=== PATIENT | female | born 1935 | race African-American/Black ===

== ENCOUNTER 2021-01-17 10:31 | Inpatient (IN) | payer OTHER ==
[2021-01-17 10:56] VITALS: BMI 20.1
[2021-01-17] MEDS ORDERED: LABETALOL HCL 5 MG/1 ML (100MG/20 ML VIAL) IVPUSH ONE (11:32)
[2021-01-17] MEDS ORDERED: LABETALOL HCL 5 MG/1 ML (100MG/20 ML VIAL) ONE (11:57)
[2021-01-17] MEDS ORDERED: ACETAMINOPHEN 1000 MG/100 ML VIAL (NON FORMULARY) IVPB ONE (12:06)
[2021-01-17 12:17] LABS: BASO % 0.1 % (0-2.0); HEMATOCRIT 37.8 % (32.4-45.2); HEMOGLOBIN 12.4 GM/dL (10.7-15.3); LYMPH % 4.4 % (8-40); MCHC 32.9 g/dl (32.0-36.0); MEAN CELL VOLUME 88.4 fl (80-96); MEAN PLT VOLUME 10.6 fl (7.5-11.1); MONO % 4.9 % (3.8-10.2); NEUT % 90.6 % (42.8-82.8); PLATELET COUNT 222 K/MM3 (134-434); RBC 4.28 M/mm3 (3.60-5.2); RDW 14.8 % (11.6-15.6); WHITE BLOOD COUNT 8.6 K/mm3 (4.0-10.0)
[2021-01-17] MEDS ORDERED: ACETAMINOPHEN INJECTION 100 ML IVPB ONE (12:21)
[2021-01-17 12:24] LABS: INR 1.14 (0.83-1.09)
[2021-01-17 12:26] LABS: ACTIVATED PTT 31.3 SECONDS (25.2-36.5)
[2021-01-17 12:28] LABS: CHLORIDE 105 mmol/L (98-107); SODIUM 141 mmol/L (136-145)
[2021-01-17 12:30] LABS: ALBUMIN 3.6 g/dl (3.4-5.0); ANION GAP 11 MMOL/L (8-16); CALCIUM 9.8 mg/dL (8.5-10.1); CO2 25 mmol/L (21-32)
[2021-01-17 12:31] LABS: BLOOD UREA NITROGEN 23.7 mg/dL (7-18); GLUCOSE,RANDOM 209 mg/dL (74-106)
[2021-01-17 12:33] LABS: SGPT/ALT 9 U/L (13-61); TRIGLYCERIDES 85 mg/dL (0-150)
[2021-01-17 12:34] LABS: CHOLESTEROL 254 mg/dL (50-200); CREATININE 1.6 mg/dL (0.55-1.3); SGOT/AST 13 U/L (15-37)
[2021-01-17 12:35] LABS: BILIRUBIN,TOTAL 0.6 mg/dL (0.2-1); LDL CHOLESTEROL (ONLY SJRH) 137 mg/dL (5-100); TOT PROT 7.3 g/dl (6.4-8.2)
[2021-01-17 12:36] LABS: ALK PHOS 130 U/L (45-117); HDL CHOLESTEROL 87 mg/dL (40-60)
[2021-01-17 12:43] LABS: VENOUS BASE EXCESS -0.9 mmol/L (-2-2); VENOUS O2 SATURATION 46.6 % (70-80); VENOUS PCO2 48.3 mmHg (38-52); VENOUS PH 7.34 (7.310-7.410)
[2021-01-17] MEDS ORDERED: hydrALAZINE HCL 20 MG/ML VIAL IVPUSH ONE ×2 (12:56→16:03)
[2021-01-17] MEDS ORDERED: VANCOMYCIN 1 GM in D5W (PRE-DOCKED) 1,000 MG/250 ML IVPB ONE (13:00)
[2021-01-17] MEDS ORDERED: PIPERACILLIN/TAZOB 3.375 GM 3.375 GM in DEXTROSE 5%-WATER - 50 ML IVPB ONE (13:00)
[2021-01-17] MEDS ORDERED: hydrALAZINE HCL 20 MG/ML VIAL ONE ×2 (13:07→16:16)
[2021-01-17] MEDS ORDERED: VANCOMYCIN 1 GRAM (PRE-DOCKED) 1,000 MG/250 ML BAG IVPB ONE (13:07)
[2021-01-17] MEDS ORDERED: PIPERACILLIN/TAZOB 3.375 GM 3.375 GM/50 ML BAG IVPB ONE (13:07)
[2021-01-17 13:12] LABS: EPI CELLS 28 /uL (0-25.1); HYALINE CASTS 1 /uL (0-3.1); URINE APPEARANCE CLEAR; URINE BACTERIA 145 /uL (0-1359); URINE BILIRUBIN NEGATIVE (NEGATIVE); URINE COLOR YELLOW; URINE GLUCOSE (UA) 2+ (NEGATIVE); URINE KETONE 1+ (NEGATIVE); URINE LEUK ESTERASE NEGATIVE (NEGATIVE); URINE NITRITE NEGATIVE (NEGATIVE); URINE PROTEIN 3+ (NEGATIVE); URINE RBC 10 /uL (0-23.9); URINE UROBILINOGEN 0.2 mg/dL (0.2-1.0); URINE WBC 8 /uL (0-25.8)
[2021-01-17] MEDS ORDERED: PIPERACILLIN/TAZOB 3.375 GM 3.375 GM in DEXTROSE 5%-WATER - 50 ML IVPB SCH (21:45)
[2021-01-17] MEDS ORDERED: PIPERACILLIN/TAZOBACTAM 3.375 GM VIAL IVPB ONE (22:20)
[2021-01-17] MEDS ORDERED: DEXTROSE 5%-WATER - 50 ML IVPB ONE (22:21)
[2021-01-17] MEDS: PIPERACILLIN/TAZOB 3.375 GM 3.375 GM in DEXTROSE 5%-WATER - 50 ML IVPB SCH (22:36)
[2021-01-17] MEDS: LACTATED RINGERS SOLUTION 1,000 ML IV SCH (22:37)
[2021-01-17] MEDS: INSULIN SLIDING SCALE (NOVOLOG) 1 VIAL SQ SCH (22:45)
[2021-01-18] MEDS ORDERED: LISINOPRIL 20 MG TABLET PO ONE (02:10)
[2021-01-18] MEDS ORDERED: PIPERACILLIN/TAZOBACTAM 3.375 GM VIAL IVPB ONE ×2 (05:35→13:12)
[2021-01-18] MEDS ORDERED: DEXTROSE 5%-WATER - 50 ML IVPB ONE ×2 (05:36→13:12)
[2021-01-18] MEDS: PIPERACILLIN/TAZOB 3.375 GM 3.375 GM in DEXTROSE 5%-WATER - 50 ML IVPB SCH ×2 (06:00→14:57)
[2021-01-18] MEDS: GABAPENTIN 300 MG CAPSULE PO SCH ×3 (06:01→22:42)
[2021-01-18 07:30] LABS: BASO % 0.3 % (0-2.0); EOS % 0.2 % (0-4.5); HEMATOCRIT 33.5 % (32.4-45.2); HEMOGLOBIN 11.3 GM/dL (10.7-15.3); LYMPH % 11.2 % (8-40); MCH 29.3 pg (25.7-33.7); MCHC 33.6 g/dl (32.0-36.0); MEAN CELL VOLUME 87.3 fl (80-96); MEAN PLT VOLUME 10.7 fl (7.5-11.1); MONO % 8.4 % (3.8-10.2); NEUT % 79.9 % (42.8-82.8); PLATELET COUNT 210 K/MM3 (134-434); RBC 3.84 M/mm3 (3.60-5.2); RDW 14.9 % (11.6-15.6)
[2021-01-18 07:42] LABS: CHLORIDE 106 mmol/L (98-107); SODIUM 141 mmol/L (136-145)
[2021-01-18 07:45] LABS: ALBUMIN 2.9 g/dl (3.4-5.0); ANION GAP 11 MMOL/L (8-16); BLOOD UREA NITROGEN 29.9 mg/dL (7-18); CO2 24 mmol/L (21-32); GLUCOSE,RANDOM 169 mg/dL (74-106); MAGNESIUM 2.3 mg/dL (1.8-2.4)
[2021-01-18 07:47] LABS: URIC ACID 4.6 mg/dL (2.6-7.2)
[2021-01-18 07:48] LABS: PHOSPHOROUS 3.4 mg/dL (2.5-4.9); SGOT/AST 10 U/L (15-37); SGPT/ALT < 6 U/L (13-61)
[2021-01-18 07:49] LABS: CREATININE 1.7 mg/dL (0.55-1.3)
[2021-01-18 07:50] LABS: BILIRUBIN,TOTAL 0.6 mg/dL (0.2-1)
[2021-01-18 07:51] LABS: ALK PHOS 103 U/L (45-117)
[2021-01-18 09:27] LABS: ERYTHROCYTE SEDIMENTATION RATE 51 mm/hr (0-30)
[2021-01-18] MEDS ORDERED: PNEUMOC 13-VAL CONJ-DIP CRM/PF 0.5 ML DISP.SYRIN IM ONE (10:00)
[2021-01-18] MEDS: ENOXAPARIN NA (PORCINE) 30 MG/0.3 ML DISP.SYRIN SQ SCH (10:50)
[2021-01-18] MEDS: ALLOPURINOL 100 MG TABLET (FP) PO SCH (10:50)
[2021-01-18] MEDS: LISINOPRIL 20 MG TABLET PO SCH (10:50)
[2021-01-18] MEDS: INSULIN SLIDING SCALE (NOVOLOG) 1 VIAL SQ SCH ×3 (12:11→22:42)
[2021-01-18] MEDS ORDERED: VANCOMYCIN 1 GRAM (PRE-DOCKED) 1,000 MG/250 ML BAG IVPB ONE (13:00)
[2021-01-18] MEDS ORDERED: VANCOMYCIN 1 GM in D5W (PRE-DOCKED) 1,000 MG/250 ML IVPB SCH (13:00)
[2021-01-18] MEDS ORDERED: CEFTRIAXONE 2 GM in DEXTROSE 5%-WATER 2 GM/50 ML BAG IVPB SCH (15:00)
[2021-01-18] MEDS: predniSONE 10 MG TABLET (UD) PO SCH (22:42)
[2021-01-18] MEDS: LACTATED RINGERS SOLUTION 1,000 ML IV SCH (22:42)
[2021-01-18] MEDS: ACETAMINOPHEN 325 MG TABLET (FP) PO PRN (23:18)
[2021-01-19] MEDS: GABAPENTIN 300 MG CAPSULE PO SCH ×3 (06:50→22:05)
[2021-01-19] MEDS: INSULIN SLIDING SCALE (NOVOLOG) 1 VIAL SQ SCH ×4 (06:50→22:04)
[2021-01-19 09:30] LABS: BASO % 0.3 % (0-2.0); HEMATOCRIT 32.8 % (32.4-45.2); LYMPH % 7.9 % (8-40); MCHC 33.4 g/dl (32.0-36.0); MEAN CELL VOLUME 86.9 fl (80-96); MEAN PLT VOLUME 10.6 fl (7.5-11.1); MONO % 9.2 % (3.8-10.2); NEUT % 82.6 % (42.8-82.8); PLATELET COUNT 199 K/MM3 (134-434); RBC 3.77 M/mm3 (3.60-5.2); RDW 14.8 % (11.6-15.6); WHITE BLOOD COUNT 7.8 K/mm3 (4.0-10.0)
[2021-01-19] MEDS: ISOSORBIDE DINITRATE 5 MG TABLET PO SCH (09:39)
[2021-01-19] MEDS: LISINOPRIL 20 MG TABLET PO SCH (09:39)
[2021-01-19] MEDS: ALLOPURINOL 100 MG TABLET (FP) PO SCH (09:39)
[2021-01-19] MEDS: predniSONE 10 MG TABLET (UD) PO SCH (09:39)
[2021-01-19] MEDS: ENOXAPARIN NA (PORCINE) 30 MG/0.3 ML DISP.SYRIN SQ SCH (09:39)
[2021-01-19] MEDS ORDERED: DEXTROSE 5%-WATER 100 ML IVPB ONE (09:47)
[2021-01-19] MEDS: CEFTRIAXONE 2 GM in DEXTROSE 5%-WATER 2 GM/100 ML BAG IVPB SCH (09:49)
[2021-01-19 09:54] LABS: CHLORIDE 106 mmol/L (98-107); SODIUM 140 mmol/L (136-145)
[2021-01-19 10:10] LABS: ALBUMIN 2.5 g/dl (3.4-5.0); BLOOD UREA NITROGEN 39.4 mg/dL (7-18)
[2021-01-19 10:11] LABS: ANION GAP 8 MMOL/L (8-16); CALCIUM 8.5 mg/dL (8.5-10.1); CO2 26 mmol/L (21-32); GLUCOSE,RANDOM 230 mg/dL (74-106); MAGNESIUM 2.4 mg/dL (1.8-2.4)
[2021-01-19 10:14] LABS: CREATININE 1.9 mg/dL (0.55-1.3); SGOT/AST 8 U/L (15-37); SGPT/ALT 6 U/L (13-61)
[2021-01-19 10:16] LABS: BILIRUBIN,TOTAL 0.2 mg/dL (0.2-1); TOT PROT 5.7 g/dl (6.4-8.2)
[2021-01-19 10:18] LABS: ALK PHOS 99 U/L (45-117)
[2021-01-19] MEDS ORDERED: INSULIN (NOVOLOG) ASPART 100 UNITS/ML 10ML VIAL ONE (10:46)
[2021-01-19] MEDS ORDERED: SODIUM CHLORIDE 1,000 ML IV SCH (13:45)
[2021-01-19] MEDS ORDERED: HEPARIN NA (PORCINE) 5,000 UNITS/ML 1ML VIAL SQ SCH (22:00)
[2021-01-19] MEDS ORDERED: INSULIN (LEVEMIR) 100 UNITS/ML UNITS SQ SCH (22:00)
[2021-01-19] MEDS: ACETAMINOPHEN 325 MG TABLET (FP) PO PRN (22:05)
[2021-01-20] MEDS: INSULIN SLIDING SCALE (NOVOLOG) 1 VIAL SQ SCH ×4 (06:20→21:43)
[2021-01-20] MEDS: GABAPENTIN 300 MG CAPSULE PO SCH ×3 (06:20→21:42)
[2021-01-20] MEDS ORDERED: INSULIN (LEVEMIR) 100 UNITS/ML UNITS SQ SCH (08:08)
[2021-01-20] MEDS ORDERED: DEXTROSE 5%-WATER 100 ML IVPB ONE (08:46)
[2021-01-20] MEDS: ISOSORBIDE DINITRATE 5 MG TABLET PO SCH (09:16)
[2021-01-20] MEDS: predniSONE 10 MG TABLET (UD) PO SCH (09:16)
[2021-01-20] MEDS: CEFTRIAXONE 2 GM in DEXTROSE 5%-WATER 2 GM/100 ML BAG IVPB SCH (09:16)
[2021-01-20] MEDS: ALLOPURINOL 100 MG TABLET (FP) PO SCH (09:16)
[2021-01-20] MEDS: HEPARIN NA (PORCINE) 5,000 UNITS/ML 1ML VIAL SQ SCH ×3 (09:16→21:41)
[2021-01-20] MEDS: LISINOPRIL 20 MG TABLET PO SCH (09:16)
[2021-01-20 11:43] LABS: HEMATOCRIT 30.6 % (32.4-45.2); MCHC 32.8 g/dl (32.0-36.0); MEAN CELL VOLUME 88.3 fl (80-96); MEAN PLT VOLUME 11.2 fl (7.5-11.1); PLATELET COUNT 204 K/MM3 (134-434); RBC 3.47 M/mm3 (3.60-5.2)
[2021-01-20 11:44] LABS: WHITE BLOOD COUNT 12.2 K/mm3 (4.0-10.0)
[2021-01-20 11:48] LABS: CALCIUM 8.3 mg/dL (8.5-10.1)
[2021-01-20 11:49] LABS: ALBUMIN 2.5 g/dl (3.4-5.0); BLOOD UREA NITROGEN 41.6 mg/dL (7-18); MAGNESIUM 2.4 mg/dL (1.8-2.4)
[2021-01-20 11:52] LABS: CREATININE 1.8 mg/dL (0.55-1.3)
[2021-01-20 11:54] LABS: BILIRUBIN,TOTAL 0.2 mg/dL (0.2-1); TOT PROT 5.5 g/dl (6.4-8.2)
[2021-01-20 12:57] LABS: ANISOCYTOSIS 0; MACROCYTOSIS 0; OVALOCYTE 1+; PLATELET ESTIMATE NORMAL
[2021-01-20] MEDS ORDERED: hydrALAZINE HCL 20 MG/ML VIAL IVPUSH ONE (21:45)
[2021-01-21] MEDS: INSULIN SLIDING SCALE (NOVOLOG) 1 VIAL SQ SCH ×3 (06:04→16:54)
[2021-01-21] MEDS: HEPARIN NA (PORCINE) 5,000 UNITS/ML 1ML VIAL SQ SCH ×2 (06:04→14:28)
[2021-01-21] MEDS: GABAPENTIN 300 MG CAPSULE PO SCH ×2 (06:29→14:28)
[2021-01-21 08:13] LABS: BASO % 0.4 % (0-2.0); EOS % 0.6 % (0-4.5); HEMATOCRIT 30.2 % (32.4-45.2); HEMOGLOBIN 10.1 GM/dL (10.7-15.3); LYMPH % 17.1 % (8-40); MCH 29.2 pg (25.7-33.7); MCHC 33.5 g/dl (32.0-36.0); MEAN CELL VOLUME 87.4 fl (80-96); MEAN PLT VOLUME 10.7 fl (7.5-11.1); MONO % 11.4 % (3.8-10.2); NEUT % 70.5 % (42.8-82.8); PLATELET COUNT 219 K/MM3 (134-434); RBC 3.45 M/mm3 (3.60-5.2); RDW 14.7 % (11.6-15.6); WHITE BLOOD COUNT 5.9 K/mm3 (4.0-10.0)
[2021-01-21 08:32] LABS: CALCIUM 8.3 mg/dL (8.5-10.1)
[2021-01-21 08:33] LABS: ALBUMIN 2.4 g/dl (3.4-5.0); BLOOD UREA NITROGEN 32.7 mg/dL (7-18); MAGNESIUM 2.4 mg/dL (1.8-2.4)
[2021-01-21 08:36] LABS: CREATININE 1.5 mg/dL (0.55-1.3)
[2021-01-21 08:37] LABS: BILIRUBIN,TOTAL 0.3 mg/dL (0.2-1); TOT PROT 5.2 g/dl (6.4-8.2)
[2021-01-21] MEDS ORDERED: POTASSIUM CHLORIDE TABS 20 MEQ TABLET.ER (FP) PO ONE (08:55)
[2021-01-21] MEDS ORDERED: DEXTROSE 5%-WATER 100 ML IVPB ONE (09:11)
[2021-01-21] MEDS: ISOSORBIDE DINITRATE 5 MG TABLET PO SCH (09:32)
[2021-01-21] MEDS: ALLOPURINOL 100 MG TABLET (FP) PO SCH (09:32)
[2021-01-21] MEDS: LISINOPRIL 20 MG TABLET PO SCH (09:32)
[2021-01-21] MEDS: CEFTRIAXONE 2 GM in DEXTROSE 5%-WATER 2 GM/100 ML BAG IVPB SCH (09:33)
[2021-01-21] MEDS ORDERED: predniSONE 5 MG TABLET (UD) PO SCH (10:00)
[2021-01-21] MEDS: ACETAMINOPHEN 325 MG TABLET (FP) PO PRN (16:52)
[2021-01-21 19:39] VITALS: BP 138/88; PULSE 86; TEMP 99
== END 2021-01-21 21:34 | DRG 565 ==
LOC: JER 10:31 → JERBED 14:52 → J4W 20:57
PROVIDERS: ADMIT Internal Medicine; ATTEND Nurse Practitioner Acute Care
DX: M25.431 Effusion, right wrist (principal); L03.113 Cellulitis of right upper limb; I16.1 Hypertensive emergency; I67.4 Hypertensive encephalopathy; E11.9 Type 2 diabetes mellitus without complications; N18.9 Chronic kidney disease, unspecified; M10.9 Gout, unspecified; E78.5 Hyperlipidemia, unspecified
CPT/HCPCS: 36415; 70450-TC; 71045-TC-FY; 73090-TC-RT-FY; 73110-TC-RT-FY; 73130-TC-RT-FY; 76775-TC; 76882-TC-RT-FY; 80053; 80061; 81003; 82550; 82803; 82962; 83036; 83605; 83721; 83735; 84100; 84443; 84484; 84550; 85025; 85610; 85651; 85730; 86140; 86618; 86769; 86850; 86900; 86901; 87040; 87086; 93005; 93010; 93971; 97116-GP; 97162-GP; 99291; C9803; J0131; J1644; U0003; U0005

== ENCOUNTER 2021-02-05 18:22 | Inpatient (IN) | payer OTHER ==
[2021-02-05] MEDS ORDERED: LACTATED RINGERS SOLUTION 1000 ML INFUS.BAG IV ONE ×2 (19:16→19:32)
[2021-02-05] MEDS ORDERED: VANCOMYCIN 250 MG/5 ML ORAL SOLUTION PO ONE (19:43)
[2021-02-05 19:47] LABS: VENOUS BASE EXCESS -14.2 mmol/L (-2-2); VENOUS O2 SATURATION 79.1 % (70-80); VENOUS PCO2 43.8 mmHg (38-52)
[2021-02-05 19:48] LABS: VENOUS PH 7.135 (7.310-7.410)
[2021-02-05] MEDS ORDERED: PIPERACILLIN/TAZOB 2.25 GM 2.25 GM in DEXTROSE 5%-WATER - 50 ML IVPB ONE (19:58)
[2021-02-05 20:01] LABS: HEMATOCRIT 41.3 % (32.4-45.2); HEMOGLOBIN 11.4 GM/dL (10.7-15.3); LYMPH % 2.2 % (8-40); MCH 27.7 pg (25.7-33.7); MCHC 27.7 g/dl (32.0-36.0); MEAN CELL VOLUME 99.9 fl (80-96); MEAN PLT VOLUME 12.6 fl (7.5-11.1); NEUT % 94.8 % (42.8-82.8); PLATELET COUNT 346 K/MM3 (134-434); RBC 4.13 M/mm3 (3.60-5.2); RDW 17.5 % (11.6-15.6); WHITE BLOOD COUNT 23.6 K/mm3 (4.0-10.0)
[2021-02-05 20:03] LABS: INR 1.14 (0.83-1.09); PROTHROMBIN TIME (PATIENT) 13.7 SEC (9.7-13.0)
[2021-02-05 20:05] LABS: ACTIVATED PTT 27.1 SECONDS (25.2-36.5)
[2021-02-05 20:08] LABS: CHLORIDE 109 mmol/L (98-107); SODIUM 145 mmol/L (136-145)
[2021-02-05 20:11] LABS: MAGNESIUM 3.2 mg/dL (1.8-2.4)
[2021-02-05 20:13] LABS: ALBUMIN 2.2 g/dl (3.4-5.0); ANION GAP 21 MMOL/L (8-16); BLOOD UREA NITROGEN 77.1 mg/dL (7-18); CALCIUM 8.8 mg/dL (8.5-10.1); CO2 15 mmol/L (21-32)
[2021-02-05 20:15] LABS: PHOSPHOROUS 5.1 mg/dL (2.5-4.9)
[2021-02-05 20:16] LABS: SGPT/ALT < 6 U/L (13-61)
[2021-02-05 20:17] LABS: BILIRUBIN,TOTAL 0.5 mg/dL (0.2-1); CREATININE 3.5 mg/dL (0.55-1.3); SGOT/AST 5 U/L (15-37)
[2021-02-05 20:18] LABS: TOT PROT 5.9 g/dl (6.4-8.2)
[2021-02-05] MEDS ORDERED: INSULIN REGULAR HUMAN 100 UNITS/ML *VIAL IVPUSH ONE (20:18)
[2021-02-05 20:19] LABS: ALK PHOS 154 U/L (45-117)
[2021-02-05 20:24] LABS: GLUCOSE,RANDOM 1245 mg/dL (74-106)
[2021-02-05] MEDS ORDERED: PIPERACILLIN/TAZOB 2.25 GM 2.25 GM/50 ML BAG IVPB ONE (20:25)
[2021-02-05] MEDS ORDERED: VANCOMYCIN 500 MG VIAL (RESTRICTED TO ID ONLY) ONE (20:25)
[2021-02-05 20:28] LABS: ANISOCYTOSIS 2+; MACROCYTOSIS 0; PLATELET ESTIMATE NORMAL; TEAR DROP CELLS 1+
[2021-02-05] MEDS ORDERED: INSULIN REGULAR 100 UNITS in SODIUM CHLORIDE 99 ML IVPB SCH (20:30)
[2021-02-05] MEDS ORDERED: KCL 10 MEQ IVPB 10 MEQ/100 ML INFUS.BAG IVPB ONE ×2 (20:43→21:54)
[2021-02-05] MEDS ORDERED: INSULIN REGULAR HUMAN 100 UNITS/ML *VIAL ONE (20:44)
[2021-02-05] MEDS ORDERED: ACETAMINOPHEN 1000 MG/100 ML VIAL (NON FORMULARY) IVPB ONE (20:51)
[2021-02-05] MEDS ORDERED: ACETAMINOPHEN INJECTION 100 ML IVPB ONE (20:53)
[2021-02-05] MEDS: KCL 10 MEQ IVPB 10 MEQ/100 ML INFUS.BAG IVPB SCH ×2 (21:04→22:57)
[2021-02-05 22:59] LABS: CHLORIDE 111 mmol/L (98-107); SODIUM 145 mmol/L (136-145)
[2021-02-05 23:02] LABS: CALCIUM 8.4 mg/dL (8.5-10.1)
[2021-02-05 23:03] LABS: ANION GAP 17 MMOL/L (8-16); BLOOD UREA NITROGEN 74.8 mg/dL (7-18); CO2 17 mmol/L (21-32)
[2021-02-05 23:06] LABS: CREATININE 3.5 mg/dL (0.55-1.3); SGOT/AST 10 U/L (15-37); SGPT/ALT < 6 U/L (13-61)
[2021-02-05 23:07] LABS: BILIRUBIN,TOTAL 0.6 mg/dL (0.2-1); TOT PROT 5.4 g/dl (6.4-8.2)
[2021-02-05 23:09] LABS: ALK PHOS 141 U/L (45-117)
[2021-02-05 23:09] LABS: EPI CELLS 19 /uL (0-25.1); HYALINE CASTS 2 /uL (0-3.1); URINE APPEARANCE CLEAR; URINE BACTERIA 5 /uL (0-1359); URINE BILIRUBIN NEGATIVE (NEGATIVE); URINE COLOR YELLOW; URINE GLUCOSE (UA) 3+ (NEGATIVE); URINE KETONE TRACE (NEGATIVE); URINE LEUK ESTERASE NEGATIVE (NEGATIVE); URINE NITRITE NEGATIVE (NEGATIVE); URINE PROTEIN 1+ (NEGATIVE); URINE RBC 39 /uL (0-23.9); URINE UROBILINOGEN 0.2 mg/dL (0.2-1.0); URINE WBC 12 /uL (0-25.8)
[2021-02-05 23:15] LABS: GLUCOSE,RANDOM 1193 mg/dL (74-106)
[2021-02-06] MEDS ORDERED: LACTATED RINGERS SOLUTION 1000 ML INFUS.BAG IV ONE (00:09)
[2021-02-06] MEDS ORDERED: PIPERACILLIN/TAZOBACTAM 2.25 GM VIAL IVPB ONE ×2 (00:47→09:19)
[2021-02-06] MEDS: KCL 10 MEQ IVPB 10 MEQ/100 ML INFUS.BAG IVPB SCH (00:48)
[2021-02-06] MEDS ORDERED: DEXTROSE 5%-WATER - 50 ML IVPB ONE ×2 (00:48→09:19)
[2021-02-06] MEDS: PIPERACILLIN/TAZOB 2.25 GM 2.25 GM in DEXTROSE 5%-WATER - 50 ML IVPB SCH ×2 (01:01→09:26)
[2021-02-06] MEDS ORDERED: PIPERACILLIN/TAZOB 2.25 GM 2.25 GM in DEXTROSE 5%-WATER - 50 ML IVPB SCH (02:00)
[2021-02-06 02:45] LABS: CHLORIDE 115 mmol/L (98-107); SODIUM 147 mmol/L (136-145)
[2021-02-06 02:48] LABS: ALBUMIN 1.8 g/dl (3.4-5.0); ANION GAP 15 MMOL/L (8-16); BLOOD UREA NITROGEN 71.6 mg/dL (7-18); CO2 17 mmol/L (21-32)
[2021-02-06 02:50] LABS: SGPT/ALT < 6 U/L (13-61)
[2021-02-06 02:51] LABS: CREATININE 3.5 mg/dL (0.55-1.3); SGOT/AST 7 U/L (15-37)
[2021-02-06 02:52] LABS: BILIRUBIN,TOTAL 0.2 mg/dL (0.2-1); TOT PROT 4.8 g/dl (6.4-8.2)
[2021-02-06 02:54] LABS: ALK PHOS 125 U/L (45-117)
[2021-02-06 02:56] LABS: GLUCOSE,RANDOM 902 mg/dL (74-106)
[2021-02-06] MEDS: SODIUM CHLORIDE 0.45%/POT 20 MEQ/1,000 ML INFUS.BAG IV SCH ×2 (04:00→12:14)
[2021-02-06] MEDS ORDERED: VANCOMYCIN 250 MG/5 ML ORAL SOLUTION PO SCH (06:00)
[2021-02-06 07:32] LABS: VENOUS BASE EXCESS -9.5 mmol/L (-2-2); VENOUS O2 SATURATION 50.8 % (70-80); VENOUS PCO2 46.9 mmHg (38-52); VENOUS PH 7.206 (7.310-7.410)
[2021-02-06 07:45] LABS: BASO % 0.4 % (0-2.0); EOS % 3.5 % (0-4.5); HEMATOCRIT 25.5 % (32.4-45.2); HEMOGLOBIN 8.4 GM/dL (10.7-15.3); LYMPH % 17.5 % (8-40); MCH 26.2 pg (25.7-33.7); MCHC 32.7 g/dl (32.0-36.0); MEAN CELL VOLUME 79.9 fl (80-96); MEAN PLT VOLUME 8.5 fl (7.5-11.1); MONO % 8.5 % (3.8-10.2); NEUT % 70.1 % (42.8-82.8); PLATELET COUNT 577 K/MM3 (134-434); RDW 21.7 % (11.6-15.6)
[2021-02-06 09:13] LABS: ANISOCYTOSIS 2+; MACROCYTOSIS 0; PLATELET ESTIMATE INCREASED
[2021-02-06] MEDS ORDERED: ELECTROLYTE-148 SOLN 1,000 ML IV SCH (10:15)
[2021-02-06 11:32] LABS: CHLORIDE 117 mmol/L (98-107); SODIUM 151 mmol/L (136-145)
[2021-02-06 11:34] LABS: ALBUMIN 1.8 g/dl (3.4-5.0); ANION GAP 13 MMOL/L (8-16); BLOOD UREA NITROGEN 74.2 mg/dL (7-18); CALCIUM 8.4 mg/dL (8.5-10.1); CO2 22 mmol/L (21-32)
[2021-02-06 11:35] LABS: GLUCOSE,RANDOM 336 mg/dL (74-106); MAGNESIUM 2.5 mg/dL (1.8-2.4)
[2021-02-06 11:37] LABS: SGOT/AST 9 U/L (15-37)
[2021-02-06 11:38] LABS: CREATININE 3.2 mg/dL (0.55-1.3)
[2021-02-06 11:39] LABS: BILIRUBIN,TOTAL 0.2 mg/dL (0.2-1); TOT PROT 4.8 g/dl (6.4-8.2)
[2021-02-06 11:40] LABS: ALK PHOS 122 U/L (45-117); PHOSPHOROUS 1.4 mg/dL (2.5-4.9)
[2021-02-06 11:44] LABS: SGPT/ALT < 6 U/L (13-61)
[2021-02-06] MEDS: HEPARIN NA (PORCINE) 5,000 UNITS/ML 1ML VIAL SQ SCH ×2 (12:11→23:50)
[2021-02-06] MEDS ORDERED: POTASSIUM PHOSPHATE 30 MM in SODIUM CHLORIDE 250 ML IVPB ONE (12:30)
[2021-02-06] MEDS ORDERED: PT OWN MED DRAWER 7, Y5N ONE ×4 (12:31→18:20)
[2021-02-06] MEDS ORDERED: DEXTROSE 5%-0.45% SALINE 1,000 ML IV SCH (14:45)
[2021-02-06] MEDS: VANCOMYCIN 250 MG/5 ML ORAL SOLUTION NGT SCH ×3 (14:58→23:50)
[2021-02-06] MEDS: MUPIROCIN 2% TOPICAL OINTMENT FOR DECOLONIZATION NS SCH ×2 (15:00→23:49)
[2021-02-06] MEDS: INSULIN SLIDING SCALE (NOVOLOG) 1 VIAL SQ SCH ×3 (15:30→23:50)
[2021-02-06 15:52] LABS: LACTIC ACID 2.4 mmol/L (0.4-2.0)
[2021-02-06] MEDS: CHLORHEXIDINE GLUCONATE 4% CLEANSER FOR DECOLONIZATION TP SCH (23:50)
[2021-02-07] MEDS: INSULIN SLIDING SCALE (NOVOLOG) 1 VIAL SQ SCH ×6 (02:00→21:36)
[2021-02-07] MEDS: VANCOMYCIN 250 MG/5 ML ORAL SOLUTION NGT SCH ×3 (06:42→17:38)
[2021-02-07 08:02] LABS: ALBUMIN 1.8 g/dl (3.4-5.0); BLOOD UREA NITROGEN 67.2 mg/dL (7-18); MAGNESIUM 2.3 mg/dL (1.8-2.4)
[2021-02-07 08:05] LABS: CREATININE 2.9 mg/dL (0.55-1.3); PHOSPHOROUS 3.3 mg/dL (2.5-4.9)
[2021-02-07 08:06] LABS: BILIRUBIN,TOTAL 0.3 mg/dL (0.2-1); TOT PROT 4.6 g/dl (6.4-8.2)
[2021-02-07] MEDS ORDERED: DEXTROSE 5%-0.45% SALINE 1,000 ML IV SCH (08:33)
[2021-02-07] MEDS: HEPARIN NA (PORCINE) 5,000 UNITS/ML 1ML VIAL SQ SCH ×2 (09:11→21:29)
[2021-02-07] MEDS: INSULIN (LEVEMIR) 100 UNITS/ML UNITS SQ SCH ×2 (09:11→21:36)
[2021-02-07] MEDS: MUPIROCIN 2% TOPICAL OINTMENT FOR DECOLONIZATION NS SCH ×2 (09:39→21:29)
[2021-02-07] MEDS ORDERED: PT OWN MED DRAWER 7, Y5N ONE ×3 (11:46→17:05)
[2021-02-07] MEDS ORDERED: ALBUTEROL SO4 0.5 % INH SOLN 2.5 MG/0.5 ML VIAL.NEB. NEB PRN (13:46)
[2021-02-07 14:04] LABS: BASO % 0.2 % (0-2.0); EOS % 0.6 % (0-4.5); HEMATOCRIT 32.5 % (32.4-45.2); HEMOGLOBIN 10.3 GM/dL (10.7-15.3); LYMPH % 3.3 % (8-40); MCH 27.6 pg (25.7-33.7); MCHC 31.8 g/dl (32.0-36.0); MEAN CELL VOLUME 86.8 fl (80-96); MEAN PLT VOLUME 11.5 fl (7.5-11.1); MONO % 3.4 % (3.8-10.2); NEUT % 92.5 % (42.8-82.8); PLATELET COUNT 254 K/MM3 (134-434); RBC 3.74 M/mm3 (3.60-5.2); RDW 15.6 % (11.6-15.6); WHITE BLOOD COUNT 22.7 K/mm3 (4.0-10.0)
[2021-02-07 15:09] LABS: ANISOCYTOSIS 1+; MACROCYTOSIS 0; PLATELET ESTIMATE NORMAL
[2021-02-07] MEDS ORDERED: FUROSEMIDE 40 MG/4 ML INJECTABLE VIAL IVPUSH ONE (17:21)
[2021-02-07] MEDS: AMINO ACIDS 4.25%/D5W 1,000 ML IV SCH (21:29)
[2021-02-07] MEDS: SODIUM CHLORIDE 0.45% 1,000 ML IV SCH (21:29)
[2021-02-07] MEDS: CHLORHEXIDINE GLUCONATE 4% CLEANSER FOR DECOLONIZATION TP SCH (21:29)
[2021-02-07] MEDS: MULTIVIT INJ. ADULT COMBO WITH VIT K 1 COMBO 10 ML VIAL IV SCH (21:36)
[2021-02-08] MEDS: INSULIN SLIDING SCALE (NOVOLOG) 1 VIAL SQ SCH ×6 (01:22→21:26)
[2021-02-08] MEDS: VANCOMYCIN 250 MG/5 ML ORAL SOLUTION NGT SCH ×5 (06:17→18:46)
[2021-02-08 08:00] LABS: ALBUMIN 1.6 g/dl (3.4-5.0); BLOOD UREA NITROGEN 62.5 mg/dL (7-18)
[2021-02-08 08:01] LABS: CALCIUM 8.1 mg/dL (8.5-10.1)
[2021-02-08 08:02] LABS: MAGNESIUM 2.2 mg/dL (1.8-2.4)
[2021-02-08 08:04] LABS: PHOSPHOROUS 3.2 mg/dL (2.5-4.9)
[2021-02-08 08:05] LABS: BILIRUBIN,TOTAL 0.8 mg/dL (0.2-1); TOT PROT 4.3 g/dl (6.4-8.2)
[2021-02-08 08:06] LABS: CREATININE 2.5 mg/dL (0.55-1.3)
[2021-02-08] MEDS ORDERED: PT OWN MED DRAWER 7, Y5N ONE (09:51)
[2021-02-08] MEDS: HEPARIN NA (PORCINE) 5,000 UNITS/ML 1ML VIAL SQ SCH ×2 (09:55→21:19)
[2021-02-08] MEDS: INSULIN (LEVEMIR) 100 UNITS/ML UNITS SQ SCH ×2 (10:19→21:27)
[2021-02-08] MEDS: MUPIROCIN 2% TOPICAL OINTMENT FOR DECOLONIZATION NS SCH ×2 (10:20→21:19)
[2021-02-08] MEDS ORDERED: INSULIN (NOVOLOG) ASPART 100 UNITS/ML 10ML VIAL ONE (11:30)
[2021-02-08] MEDS: MULTIVIT INJ. ADULT COMBO WITH VIT K 1 COMBO 10 ML VIAL IV SCH (12:54)
[2021-02-08 14:54] LABS: ALBUMIN 1.7 g/dl (3.4-5.0); BLOOD UREA NITROGEN 66.3 mg/dL (7-18); CALCIUM 8.4 mg/dL (8.5-10.1)
[2021-02-08 14:59] LABS: BILIRUBIN,TOTAL 0.2 mg/dL (0.2-1)
[2021-02-08 15:00] LABS: CREATININE 2.5 mg/dL (0.55-1.3); TOT PROT 4.6 g/dl (6.4-8.2)
[2021-02-08] MEDS ORDERED: DEXTROSE 50%-WATER 25 GM/50 ML DISP.SYRIN ONE (18:43)
[2021-02-08] MEDS: SODIUM CHLORIDE 0.45% 1,000 ML IV SCH (18:45)
[2021-02-08] MEDS: AMINO ACIDS 4.25%/D5W 1,000 ML IV SCH (18:45)
[2021-02-08] MEDS ORDERED: DEXTROSE 50%-WATER - 25 GM/50 ML VIAL IVPUSH ONE (19:04)
[2021-02-08] MEDS: CHLORHEXIDINE GLUCONATE 4% CLEANSER FOR DECOLONIZATION TP SCH (21:19)
[2021-02-09] MEDS ORDERED: ALBUTEROL SO4 0.5 % INH SOLN 2.5 MG/0.5 ML VIAL.NEB. NEB PRN (00:08)
[2021-02-09] MEDS ORDERED: SODIUM CHLORIDE 0.45% 1,000 ML IV SCH (00:08)
[2021-02-09] MEDS: VANCOMYCIN 250 MG/5 ML ORAL SOLUTION NGT SCH ×5 (00:15→23:09)
[2021-02-09] MEDS ORDERED: PT OWN MED DRAWER 7, Y5N ONE (00:16)
[2021-02-09] MEDS: INSULIN SLIDING SCALE (NOVOLOG) 1 VIAL SQ SCH ×6 (02:56→22:43)
[2021-02-09] MEDS ORDERED: MUPIROCIN 2% TOPICAL OINTMENT FOR DECOLONIZATION NS SCH (10:00)
[2021-02-09] MEDS ORDERED: MULTIVIT INJ. ADULT COMBO WITH VIT K 1 COMBO 10 ML VIAL IV SCH (10:00)
[2021-02-09] MEDS: HEPARIN NA (PORCINE) 5,000 UNITS/ML 1ML VIAL SQ SCH ×2 (10:09→22:32)
[2021-02-09] MEDS: INSULIN (LEVEMIR) 100 UNITS/ML UNITS SQ SCH ×2 (10:18→22:43)
[2021-02-09 12:30] LABS: CHLORIDE 120 mmol/L (98-107); SODIUM 150 mmol/L (136-145)
[2021-02-09 12:33] LABS: ALBUMIN 1.5 g/dl (3.4-5.0)
[2021-02-09 12:34] LABS: ANION GAP 10 MMOL/L (8-16); BLOOD UREA NITROGEN 59.7 mg/dL (7-18); CALCIUM 7.6 mg/dL (8.5-10.1); CO2 19 mmol/L (21-32); GLUCOSE,RANDOM 218 mg/dL (74-106)
[2021-02-09 12:37] LABS: MAGNESIUM 2.2 mg/dL (1.8-2.4); PHOSPHOROUS 2.8 mg/dL (2.5-4.9); SGOT/AST 8 U/L (15-37); SGPT/ALT < 6 U/L (13-61)
[2021-02-09 12:38] LABS: BILIRUBIN,TOTAL 0.4 mg/dL (0.2-1)
[2021-02-09 12:39] LABS: ALK PHOS 109 U/L (45-117)
[2021-02-09] MEDS ORDERED: AMINO ACIDS 4.25%/D5W 1,000 ML IV SCH ×2 (12:45→17:30)
[2021-02-09 13:55] LABS: BASO % 0.4 % (0-2.0); EOS % 0.4 % (0-4.5); HEMATOCRIT 33.3 % (32.4-45.2); HEMOGLOBIN 10.3 GM/dL (10.7-15.3); LYMPH % 5.7 % (8-40); MCH 27.6 pg (25.7-33.7); MCHC 31.1 g/dl (32.0-36.0); MEAN CELL VOLUME 88.9 fl (80-96); MEAN PLT VOLUME 12.1 fl (7.5-11.1); MONO % 4.9 % (3.8-10.2); NEUT % 88.6 % (42.8-82.8); PLATELET COUNT 210 K/MM3 (134-434); RBC 3.75 M/mm3 (3.60-5.2); RDW 16.1 % (11.6-15.6); WHITE BLOOD COUNT 11.2 K/mm3 (4.0-10.0)
[2021-02-09] MEDS: MULTIVIT-MINERALS ORAL LIQUID NGT SCH (14:11)
[2021-02-09 14:13] LABS: CHLORIDE 122 mmol/L (98-107); SODIUM 151 mmol/L (136-145)
[2021-02-09 14:15] LABS: CALCIUM 7.6 mg/dL (8.5-10.1)
[2021-02-09 14:16] LABS: ALBUMIN 1.5 g/dl (3.4-5.0); ANION GAP 10 MMOL/L (8-16); BLOOD UREA NITROGEN 60.8 mg/dL (7-18); CO2 20 mmol/L (21-32); GLUCOSE,RANDOM 205 mg/dL (74-106)
[2021-02-09 14:19] LABS: SGOT/AST 8 U/L (15-37); SGPT/ALT < 6 U/L (13-61)
[2021-02-09 14:20] LABS: BILIRUBIN,TOTAL 0.3 mg/dL (0.2-1)
[2021-02-09 14:21] LABS: TOT PROT 3.9 g/dl (6.4-8.2)
[2021-02-09 14:22] LABS: ALK PHOS 104 U/L (45-117)
[2021-02-09] MEDS: KCL 10 MEQ IVPB 10 MEQ/100 ML INFUS.BAG IVPB SCH ×3 (14:38→19:33)
[2021-02-09] MEDS: POTASSIUM CHLORIDE 20 MEQ in AMINO ACIDS 4.25%/D5W 1,000 ML IV SCH (16:27)
[2021-02-09 17:21] LABS: ANISOCYTOSIS 0; MACROCYTOSIS 0; OVALOCYTE 1+; PLATELET ESTIMATE NORMAL
[2021-02-09] MEDS ORDERED: CHLORHEXIDINE GLUCONATE 4% CLEANSER FOR DECOLONIZATION TP SCH (22:00)
[2021-02-10] MEDS ORDERED: PT OWN MED DRAWER 7, Y5N ONE ×2 (01:03→08:56)
[2021-02-10] MEDS: VANCOMYCIN 250 MG/5 ML ORAL SOLUTION NGT SCH ×4 (05:45→23:14)
[2021-02-10] MEDS: POTASSIUM CHLORIDE 20 MEQ in AMINO ACIDS 4.25%/D5W 1,000 ML IV SCH ×2 (07:00→13:57)
[2021-02-10] MEDS ORDERED: INSULIN SLIDING SCALE (NOVOLOG) 1 VIAL SQ ONE (07:56)
[2021-02-10 09:15] LABS: BASO % 0.3 % (0-2.0); EOS % 0.9 % (0-4.5); HEMATOCRIT 30.7 % (32.4-45.2); LYMPH % 10.5 % (8-40); MCHC 32.5 g/dl (32.0-36.0); MEAN CELL VOLUME 86.1 fl (80-96); MONO % 11.2 % (3.8-10.2); NEUT % 77.1 % (42.8-82.8); PLATELET COUNT 208 K/MM3 (134-434); RBC 3.56 M/mm3 (3.60-5.2); RDW 15.8 % (11.6-15.6); WHITE BLOOD COUNT 7.6 K/mm3 (4.0-10.0)
[2021-02-10 09:29] LABS: CALCIUM 7.8 mg/dL (8.5-10.1)
[2021-02-10 09:30] LABS: ALBUMIN 1.7 g/dl (3.4-5.0)
[2021-02-10 09:33] LABS: BILIRUBIN,TOTAL 0.3 mg/dL (0.2-1); BLOOD UREA NITROGEN 60.8 mg/dL (7-18); CREATININE 2.1 mg/dL (0.55-1.3); MAGNESIUM 2.1 mg/dL (1.8-2.4); PHOSPHOROUS 1.6 mg/dL (2.5-4.9); TOT PROT 4.2 g/dl (6.4-8.2)
[2021-02-10] MEDS: HEPARIN NA (PORCINE) 5,000 UNITS/ML 1ML VIAL SQ SCH ×2 (09:55→22:15)
[2021-02-10] MEDS: INSULIN (LEVEMIR) 100 UNITS/ML UNITS SQ SCH ×2 (09:58→22:16)
[2021-02-10] MEDS: INSULIN SLIDING SCALE (NOVOLOG) 1 VIAL SQ SCH ×4 (09:59→22:18)
[2021-02-10] MEDS: MULTIVIT-MINERALS ORAL LIQUID NGT SCH (10:09)
[2021-02-10 11:20] LABS: ANISOCYTOSIS 0; MACROCYTOSIS 0; PLATELET ESTIMATE NORMAL
[2021-02-10] MEDS ORDERED: POTASSIUM PHOSPHATE 15 MM in DEXTROSE 5%-WATER - 250 ML IVPB ONE (12:30)
[2021-02-10 14:51] VITALS: BMI 22.4
[2021-02-11] MEDS: POTASSIUM CHLORIDE 20 MEQ in AMINO ACIDS 4.25%/D5W 1,000 ML IV SCH ×3 (01:17→23:15)
[2021-02-11] MEDS: VANCOMYCIN 250 MG/5 ML ORAL SOLUTION NGT SCH ×4 (05:49→23:15)
[2021-02-11 06:50] LABS: BASO % 0.4 % (0-2.0); HEMATOCRIT 29.8 % (32.4-45.2); HEMOGLOBIN 9.5 GM/dL (10.7-15.3); LYMPH % 17.8 % (8-40); MCH 27.7 pg (25.7-33.7); MEAN CELL VOLUME 86.7 fl (80-96); MEAN PLT VOLUME 11.8 fl (7.5-11.1); MONO % 15.2 % (3.8-10.2); NEUT % 64.6 % (42.8-82.8); PLATELET COUNT 195 K/MM3 (134-434); RBC 3.43 M/mm3 (3.60-5.2); RDW 15.6 % (11.6-15.6); WHITE BLOOD COUNT 5.7 K/mm3 (4.0-10.0)
[2021-02-11 07:10] LABS: CALCIUM 7.8 mg/dL (8.5-10.1)
[2021-02-11 07:11] LABS: ALBUMIN 1.6 g/dl (3.4-5.0); BLOOD UREA NITROGEN 53.7 mg/dL (7-18); MAGNESIUM 1.9 mg/dL (1.8-2.4)
[2021-02-11 07:14] LABS: CREATININE 1.7 mg/dL (0.55-1.3); PHOSPHOROUS 1.8 mg/dL (2.5-4.9)
[2021-02-11 07:15] LABS: BILIRUBIN,TOTAL 0.5 mg/dL (0.2-1)
[2021-02-11] MEDS ORDERED: PT OWN MED DRAWER 7, Y5N ONE ×2 (09:26→11:08)
[2021-02-11] MEDS: HEPARIN NA (PORCINE) 5,000 UNITS/ML 1ML VIAL SQ SCH ×2 (10:33→22:11)
[2021-02-11 11:15] LABS: ANISOCYTOSIS 1+; MACROCYTOSIS 0; OVALOCYTE 1+; PLATELET ESTIMATE NORMAL
[2021-02-11] MEDS: INSULIN (LEVEMIR) 100 UNITS/ML UNITS SQ SCH ×2 (11:44→22:11)
[2021-02-11] MEDS: MULTIVIT-MINERALS ORAL LIQUID NGT SCH (11:46)
[2021-02-11] MEDS: INSULIN SLIDING SCALE (NOVOLOG) 1 VIAL SQ SCH ×4 (11:46→22:11)
[2021-02-11] MEDS ORDERED: ACETAMINOPHEN 1000 MG/100 ML VIAL (NON FORMULARY) IVPB ONE (14:18)
[2021-02-11] MEDS ORDERED: POTASSIUM PHOSPHATE 30 MM in DEXTROSE 5%-WATER - 500 ML IVPB ONE (15:30)
[2021-02-11] MEDS: NAPH,MB-DB/K PH,MBDB POWDER PACKET PO SCH (22:12)
[2021-02-12] MEDS: POTASSIUM CHLORIDE 20 MEQ in AMINO ACIDS 4.25%/D5W 1,000 ML IV SCH ×2 (02:18→14:26)
[2021-02-12] MEDS: VANCOMYCIN 250 MG/5 ML ORAL SOLUTION NGT SCH (05:44)
[2021-02-12] MEDS: INSULIN SLIDING SCALE (NOVOLOG) 1 VIAL SQ SCH ×4 (06:05→22:07)
[2021-02-12 07:14] LABS: ALBUMIN 1.8 g/dl (3.4-5.0); CALCIUM 7.5 mg/dL (8.5-10.1)
[2021-02-12 07:15] LABS: BLOOD UREA NITROGEN 53.3 mg/dL (7-18); MAGNESIUM 1.8 mg/dL (1.8-2.4)
[2021-02-12 07:18] LABS: CREATININE 1.5 mg/dL (0.55-1.3)
[2021-02-12 07:19] LABS: BILIRUBIN,TOTAL 0.2 mg/dL (0.2-1); TOT PROT 4.3 g/dl (6.4-8.2)
[2021-02-12] MEDS ORDERED: PT OWN MED DRAWER 7, Y5N ONE ×2 (08:54→11:00)
[2021-02-12] MEDS: HEPARIN NA (PORCINE) 5,000 UNITS/ML 1ML VIAL SQ SCH ×2 (09:02→22:02)
[2021-02-12] MEDS: NAPH,MB-DB/K PH,MBDB POWDER PACKET PO SCH ×2 (09:03→22:02)
[2021-02-12] MEDS: MULTIVIT-MINERALS ORAL LIQUID PO SCH ×2 (10:50)
[2021-02-12] MEDS ORDERED: ACETAMINOPHEN 325 MG TABLET (FP) ONE (11:00)
[2021-02-12] MEDS: INSULIN (LEVEMIR) 100 UNITS/ML UNITS SQ SCH ×2 (11:11→22:07)
[2021-02-12] MEDS: VANCOMYCIN 250 MG/5 ML ORAL SOLUTION PO SCH ×2 (13:00→17:01)
[2021-02-12] MEDS ORDERED: PANTOPRAZOLE SODIUM 40 MG in SODIUM CHLORIDE 100 ML IVPB SCH (13:45)
[2021-02-12] MEDS ORDERED: PANTOPRAZOLE SODIUM 40 MG VIAL IVPB SCH (14:00)
[2021-02-13] MEDS: VANCOMYCIN 250 MG/5 ML ORAL SOLUTION PO SCH ×5 (00:10→18:14)
[2021-02-13] MEDS: POTASSIUM CHLORIDE 20 MEQ in AMINO ACIDS 4.25%/D5W 1,000 ML IV SCH ×3 (01:48→18:01)
[2021-02-13] MEDS: INSULIN SLIDING SCALE (NOVOLOG) 1 VIAL SQ SCH ×4 (06:48→22:08)
[2021-02-13 09:16] LABS: BASO % 0.5 % (0-2.0); EOS % 1.5 % (0-4.5); HEMATOCRIT 31.3 % (32.4-45.2); HEMOGLOBIN 9.9 GM/dL (10.7-15.3); MCHC 31.7 g/dl (32.0-36.0); MEAN CELL VOLUME 88.1 fl (80-96); MEAN PLT VOLUME 11.3 fl (7.5-11.1); MONO % 8.8 % (3.8-10.2); NEUT % 73.2 % (42.8-82.8); PLATELET COUNT 269 K/MM3 (134-434); RBC 3.55 M/mm3 (3.60-5.2); RDW 16.1 % (11.6-15.6); WHITE BLOOD COUNT 6.8 K/mm3 (4.0-10.0)
[2021-02-13 09:52] LABS: ALBUMIN 1.9 g/dl (3.4-5.0); CALCIUM 7.7 mg/dL (8.5-10.1); MAGNESIUM 1.7 mg/dL (1.8-2.4); PHOSPHOROUS 2.4 mg/dL (2.5-4.9)
[2021-02-13 09:55] LABS: BILIRUBIN,TOTAL 0.2 mg/dL (0.2-1); CREATININE 1.5 mg/dL (0.55-1.3)
[2021-02-13 09:57] LABS: TOT PROT 4.4 g/dl (6.4-8.2)
[2021-02-13] MEDS ORDERED: PT OWN MED DRAWER 7, Y5N ONE (10:02)
[2021-02-13] MEDS: HEPARIN NA (PORCINE) 5,000 UNITS/ML 1ML VIAL SQ SCH ×2 (10:19→22:07)
[2021-02-13] MEDS: PANTOPRAZOLE SODIUM 40 MG VIAL IVPUSH SCH (10:20)
[2021-02-13] MEDS: NAPH,MB-DB/K PH,MBDB POWDER PACKET PO SCH ×2 (10:20→22:08)
[2021-02-13] MEDS: MULTIVIT-MINERALS ORAL LIQUID PO SCH ×2 (10:20→10:54)
[2021-02-13] MEDS ORDERED: ACETAMINOPHEN 650 MG/20.3 ML ORAL SOLUTION (CUPS) PO PRN (10:47)
[2021-02-13] MEDS: INSULIN (LEVEMIR) 100 UNITS/ML UNITS SQ SCH ×2 (11:35→22:07)
[2021-02-13 11:48] LABS: ANISOCYTOSIS 0; HELMET CELLS 0; HOWELL-JOLLY BODIES 0; MACROCYTOSIS 0; OVALOCYTE 0; PLATELET ESTIMATE NORMAL; ROULEAU 0; SICKELED CELLS 0; TARGET CELLS 0; TEAR DROP CELLS 0; TOXIC GRANULATION 0
[2021-02-13] MEDS ORDERED: MAGNESIUM OXIDE 400 MG TABLET (FP) PO ONE (13:00)
[2021-02-13] MEDS: LIDOCAINE 5% TOPICAL PATCH TP SCH (14:30)
[2021-02-13 17:31] LABS: BASO % 0.7 % (0-2.0); EOS % 0.7 % (0-4.5); HEMATOCRIT 32.4 % (32.4-45.2); HEMOGLOBIN 10.3 GM/dL (10.7-15.3); MCH 28.1 pg (25.7-33.7); MCHC 31.8 g/dl (32.0-36.0); MEAN CELL VOLUME 88.3 fl (80-96); MEAN PLT VOLUME 11.7 fl (7.5-11.1); MONO % 9.5 % (3.8-10.2); NEUT % 75.1 % (42.8-82.8); PLATELET COUNT 243 K/MM3 (134-434); RBC 3.67 M/mm3 (3.60-5.2); RDW 16.5 % (11.6-15.6); WHITE BLOOD COUNT 7.6 K/mm3 (4.0-10.0)
[2021-02-13] MEDS: LIDOCAINE PATCH REMOVAL MC SCH (22:08)
[2021-02-14] MEDS: VANCOMYCIN 250 MG/5 ML ORAL SOLUTION PO SCH ×4 (01:44→17:24)
[2021-02-14] MEDS: POTASSIUM CHLORIDE 20 MEQ in AMINO ACIDS 4.25%/D5W 1,000 ML IV SCH ×2 (06:11→15:25)
[2021-02-14] MEDS: INSULIN SLIDING SCALE (NOVOLOG) 1 VIAL SQ SCH ×4 (06:14→22:42)
[2021-02-14] MEDS: INSULIN (LEVEMIR) 100 UNITS/ML UNITS SQ SCH ×2 (10:22→22:42)
[2021-02-14] MEDS: NAPH,MB-DB/K PH,MBDB POWDER PACKET PO SCH ×2 (11:40→22:51)
[2021-02-14] MEDS: HEPARIN NA (PORCINE) 5,000 UNITS/ML 1ML VIAL SQ SCH ×2 (11:40→22:38)
[2021-02-14] MEDS: LIDOCAINE 5% TOPICAL PATCH TP SCH (11:40)
[2021-02-14] MEDS: PANTOPRAZOLE SODIUM 40 MG VIAL IVPUSH SCH (11:41)
[2021-02-14] MEDS ORDERED: PT OWN MED DRAWER 7, Y5N ONE ×2 (11:47→23:40)
[2021-02-14] MEDS: MULTIVIT-MINERALS ORAL LIQUID PO SCH (11:49)
[2021-02-14] MEDS: LIDOCAINE PATCH REMOVAL MC SCH (22:43)
[2021-02-15] MEDS: VANCOMYCIN 250 MG/5 ML ORAL SOLUTION PO SCH ×4 (01:03→18:23)
[2021-02-15] MEDS: INSULIN SLIDING SCALE (NOVOLOG) 1 VIAL SQ SCH ×4 (06:23→21:57)
[2021-02-15 07:11] LABS: BASO % 0.5 % (0-2.0); EOS % 0.7 % (0-4.5); HEMATOCRIT 28.9 % (32.4-45.2); HEMOGLOBIN 9.3 GM/dL (10.7-15.3); LYMPH % 11.8 % (8-40); MCH 28.3 pg (25.7-33.7); MCHC 32.3 g/dl (32.0-36.0); MEAN CELL VOLUME 87.6 fl (80-96); MEAN PLT VOLUME 10.8 fl (7.5-11.1); MONO % 5.7 % (3.8-10.2); NEUT % 81.3 % (42.8-82.8); PLATELET COUNT 335 K/MM3 (134-434); RDW 16.4 % (11.6-15.6); WHITE BLOOD COUNT 7.5 K/mm3 (4.0-10.0)
[2021-02-15 07:29] LABS: ALBUMIN 1.9 g/dl (3.4-5.0); BLOOD UREA NITROGEN 51.8 mg/dL (7-18); CALCIUM 7.7 mg/dL (8.5-10.1); MAGNESIUM 1.8 mg/dL (1.8-2.4)
[2021-02-15 07:32] LABS: CREATININE 1.4 mg/dL (0.55-1.3)
[2021-02-15 07:33] LABS: PHOSPHOROUS 2.6 mg/dL (2.5-4.9)
[2021-02-15 07:34] LABS: BILIRUBIN,TOTAL 0.2 mg/dL (0.2-1); TOT PROT 4.5 g/dl (6.4-8.2)
[2021-02-15] MEDS ORDERED: PT OWN MED DRAWER 7, Y5N ONE (10:42)
[2021-02-15] MEDS: PANTOPRAZOLE SODIUM 40 MG VIAL IVPUSH SCH (10:45)
[2021-02-15] MEDS: HEPARIN NA (PORCINE) 5,000 UNITS/ML 1ML VIAL SQ SCH ×2 (10:45→21:56)
[2021-02-15] MEDS: NAPH,MB-DB/K PH,MBDB POWDER PACKET PO SCH ×2 (10:46→21:58)
[2021-02-15] MEDS: LIDOCAINE 5% TOPICAL PATCH TP SCH (10:46)
[2021-02-15] MEDS: MULTIVIT-MINERALS ORAL LIQUID PO SCH (10:46)
[2021-02-15] MEDS: INSULIN (LEVEMIR) 100 UNITS/ML UNITS SQ SCH ×2 (10:48→21:57)
[2021-02-15] MEDS ORDERED: ACETAMINOPHEN 1000 MG/100 ML VIAL (NON FORMULARY) IVPB ONE (12:33)
[2021-02-15] MEDS ORDERED: POTASSIUM CHLORIDE 20 MEQ in AMINO ACIDS 4.25%/D5W 1,000 ML IV SCH (16:30)
[2021-02-15] MEDS: POTASSIUM CHLORIDE 20 MEQ in AMINO ACIDS 4.25%/D5W 1,000 ML IV SCH (18:23)
[2021-02-15] MEDS: LIDOCAINE PATCH REMOVAL MC SCH (21:57)
[2021-02-16] MEDS: VANCOMYCIN 250 MG/5 ML ORAL SOLUTION PO SCH ×4 (01:36→18:02)
[2021-02-16] MEDS: INSULIN SLIDING SCALE (NOVOLOG) 1 VIAL SQ SCH ×4 (06:43→22:28)
[2021-02-16] MEDS: POTASSIUM CHLORIDE 20 MEQ in AMINO ACIDS 4.25%/D5W 1,000 ML IV SCH ×2 (07:30→22:31)
[2021-02-16] MEDS ORDERED: PT OWN MED DRAWER 7, Y5N ONE (09:07)
[2021-02-16] MEDS: PANTOPRAZOLE SODIUM 40 MG VIAL IVPUSH SCH (09:15)
[2021-02-16] MEDS: HEPARIN NA (PORCINE) 5,000 UNITS/ML 1ML VIAL SQ SCH ×2 (09:16→22:29)
[2021-02-16] MEDS: LIDOCAINE 5% TOPICAL PATCH TP SCH (09:16)
[2021-02-16] MEDS: NAPH,MB-DB/K PH,MBDB POWDER PACKET PO SCH ×2 (09:17→22:27)
[2021-02-16] MEDS: MULTIVIT-MINERALS ORAL LIQUID PO SCH (09:26)
[2021-02-16 09:52] LABS: BASO % 0.5 % (0-2.0); EOS % 0.8 % (0-4.5); HEMATOCRIT 27.6 % (32.4-45.2); MCH 28.1 pg (25.7-33.7); MCHC 32.8 g/dl (32.0-36.0); MEAN CELL VOLUME 85.7 fl (80-96); MEAN PLT VOLUME 10.2 fl (7.5-11.1); MONO % 5.1 % (3.8-10.2); NEUT % 80.6 % (42.8-82.8); PLATELET COUNT 344 K/MM3 (134-434); RBC 3.22 M/mm3 (3.60-5.2); RDW 16.4 % (11.6-15.6); WHITE BLOOD COUNT 6.7 K/mm3 (4.0-10.0)
[2021-02-16 10:16] LABS: CALCIUM 8.3 mg/dL (8.5-10.1)
[2021-02-16 10:17] LABS: BLOOD UREA NITROGEN 50.6 mg/dL (7-18); MAGNESIUM 1.8 mg/dL (1.8-2.4)
[2021-02-16 10:20] LABS: CREATININE 1.2 mg/dL (0.55-1.3); PHOSPHOROUS 2.1 mg/dL (2.5-4.9)
[2021-02-16 10:22] LABS: BILIRUBIN,TOTAL 0.2 mg/dL (0.2-1); TOT PROT 4.6 g/dl (6.4-8.2)
[2021-02-16 11:12] LABS: ANISOCYTOSIS 0; MACROCYTOSIS 0; PLATELET ESTIMATE NORMAL
[2021-02-16] MEDS: INSULIN (LEVEMIR) 100 UNITS/ML UNITS SQ SCH ×2 (11:20→22:29)
[2021-02-16] MEDS ORDERED: SODIUM PHOSPHATE - 20 MM in DEXTROSE 5%-WATER - 250 ML IVPB ONE (13:00)
[2021-02-16] MEDS: LIDOCAINE PATCH REMOVAL MC SCH (22:28)
[2021-02-17] MEDS: VANCOMYCIN 250 MG/5 ML ORAL SOLUTION PO SCH ×5 (01:07→23:21)
[2021-02-17] MEDS: INSULIN SLIDING SCALE (NOVOLOG) 1 VIAL SQ SCH ×4 (06:18→21:08)
[2021-02-17] MEDS: HEPARIN NA (PORCINE) 5,000 UNITS/ML 1ML VIAL SQ SCH ×2 (09:43→21:01)
[2021-02-17] MEDS: PANTOPRAZOLE SODIUM 40 MG VIAL IVPUSH SCH (09:43)
[2021-02-17] MEDS: NAPH,MB-DB/K PH,MBDB POWDER PACKET PO SCH ×2 (09:44→21:02)
[2021-02-17] MEDS: LIDOCAINE 5% TOPICAL PATCH TP SCH (09:44)
[2021-02-17] MEDS: MULTIVIT-MINERALS ORAL LIQUID PO SCH (09:45)
[2021-02-17] MEDS ORDERED: FLUCONAZOLE 200 MG/NS 100 ML IVPB ONE (11:00)
[2021-02-17] MEDS: INSULIN (LEVEMIR) 100 UNITS/ML UNITS SQ SCH ×2 (11:06→21:08)
[2021-02-17] MEDS ORDERED: POTASSIUM CHLORIDE 20 MEQ in AMINO ACIDS 4.25%/D5W 1,000 ML IV SCH (11:45)
[2021-02-17 12:35] LABS: BASO % 0.7 % (0-2.0); EOS % 0.7 % (0-4.5); HEMATOCRIT 31.1 % (32.4-45.2); HEMOGLOBIN 10.1 GM/dL (10.7-15.3); LYMPH % 13.8 % (8-40); MCH 27.6 pg (25.7-33.7); MCHC 32.5 g/dl (32.0-36.0); MEAN PLT VOLUME 10.3 fl (7.5-11.1); MONO % 4.1 % (3.8-10.2); NEUT % 80.7 % (42.8-82.8); PLATELET COUNT 409 K/MM3 (134-434); RBC 3.66 M/mm3 (3.60-5.2); RDW 16.3 % (11.6-15.6); WHITE BLOOD COUNT 6.9 K/mm3 (4.0-10.0)
[2021-02-17 13:06] LABS: CALCIUM 8.7 mg/dL (8.5-10.1)
[2021-02-17 13:07] LABS: ALBUMIN 2.2 g/dl (3.4-5.0); BLOOD UREA NITROGEN 41.6 mg/dL (7-18); MAGNESIUM 1.8 mg/dL (1.8-2.4)
[2021-02-17 13:09] LABS: CREATININE 1.1 mg/dL (0.55-1.3)
[2021-02-17 13:10] LABS: PHOSPHOROUS 3.5 mg/dL (2.5-4.9)
[2021-02-17 13:11] LABS: BILIRUBIN,TOTAL 0.2 mg/dL (0.2-1); TOT PROT 5.3 g/dl (6.4-8.2)
[2021-02-17] MEDS: NYSTATIN 500,000 UNITS TABLET PO SCH ×2 (13:30→21:02)
[2021-02-17] MEDS: LIDOCAINE PATCH REMOVAL MC SCH (21:01)
[2021-02-18] MEDS ORDERED: PT OWN MED DRAWER 7, Y5N ONE ×3 (05:47→21:13)
[2021-02-18] MEDS: NYSTATIN 500,000 UNITS TABLET PO SCH ×3 (06:11→21:33)
[2021-02-18] MEDS: VANCOMYCIN 250 MG/5 ML ORAL SOLUTION PO SCH ×3 (06:13→17:20)
[2021-02-18] MEDS: INSULIN SLIDING SCALE (NOVOLOG) 1 VIAL SQ SCH ×4 (06:23→21:32)
[2021-02-18 07:15] LABS: HEMATOCRIT 28.3 % (32.4-45.2); HEMOGLOBIN 9.3 GM/dL (10.7-15.3); MCH 27.9 pg (25.7-33.7); MCHC 32.7 g/dl (32.0-36.0); MEAN CELL VOLUME 85.2 fl (80-96); MEAN PLT VOLUME 10.1 fl (7.5-11.1); PLATELET COUNT 395 K/MM3 (134-434); RBC 3.33 M/mm3 (3.60-5.2); RDW 16.3 % (11.6-15.6); WHITE BLOOD COUNT 6.3 K/mm3 (4.0-10.0)
[2021-02-18 07:39] LABS: ALBUMIN 2.1 g/dl (3.4-5.0); CALCIUM 8.3 mg/dL (8.5-10.1)
[2021-02-18 07:40] LABS: MAGNESIUM 1.8 mg/dL (1.8-2.4)
[2021-02-18 07:42] LABS: BILIRUBIN,TOTAL 0.2 mg/dL (0.2-1); CREATININE 1.1 mg/dL (0.55-1.3); TOT PROT 4.9 g/dl (6.4-8.2)
[2021-02-18 07:43] LABS: PHOSPHOROUS 3.4 mg/dL (2.5-4.9)
[2021-02-18] MEDS: HEPARIN NA (PORCINE) 5,000 UNITS/ML 1ML VIAL SQ SCH ×2 (09:12→21:32)
[2021-02-18] MEDS: LIDOCAINE 5% TOPICAL PATCH TP SCH (09:12)
[2021-02-18] MEDS: PANTOPRAZOLE 40 MG TABLET PO SCH (09:12)
[2021-02-18] MEDS: NAPH,MB-DB/K PH,MBDB POWDER PACKET PO SCH ×2 (09:12→21:33)
[2021-02-18] MEDS: MULTIVIT-MINERALS ORAL LIQUID PO SCH (09:13)
[2021-02-18] MEDS: INSULIN (LEVEMIR) 100 UNITS/ML UNITS SQ SCH ×2 (09:24→21:32)
[2021-02-18 11:07] LABS: SARS-CoV-2 NAA Not Detected (Not Detected)
[2021-02-18] MEDS ORDERED: AMINO ACIDS 4.25%/D5W 1,000 ML IV SCH (15:00)
[2021-02-18] MEDS: LIDOCAINE PATCH REMOVAL MC SCH (21:32)
[2021-02-19] MEDS: VANCOMYCIN 250 MG/5 ML ORAL SOLUTION PO SCH ×3 (01:18→12:45)
[2021-02-19] MEDS: NYSTATIN 500,000 UNITS TABLET PO SCH (06:08)
[2021-02-19] MEDS: INSULIN SLIDING SCALE (NOVOLOG) 1 VIAL SQ SCH ×2 (06:47→11:09)
[2021-02-19] MEDS ORDERED: PT OWN MED DRAWER 7, Y5N ONE (09:01)
[2021-02-19] MEDS: NAPH,MB-DB/K PH,MBDB POWDER PACKET PO SCH (09:08)
[2021-02-19] MEDS: HEPARIN NA (PORCINE) 5,000 UNITS/ML 1ML VIAL SQ SCH (09:08)
[2021-02-19] MEDS: MULTIVIT-MINERALS ORAL LIQUID PO SCH (09:09)
[2021-02-19] MEDS: LIDOCAINE 5% TOPICAL PATCH TP SCH (09:09)
[2021-02-19] MEDS: PANTOPRAZOLE 40 MG TABLET PO SCH (09:10)
[2021-02-19 09:19] VITALS: BP 145/55; PULSE 62; TEMP 97.9
[2021-02-19] MEDS: INSULIN (LEVEMIR) 100 UNITS/ML UNITS SQ SCH (11:08)
[2021-02-19 12:26] LABS: CALCIUM 8.5 mg/dL (8.5-10.1)
[2021-02-19 12:27] LABS: ALBUMIN 2.1 g/dl (3.4-5.0); BLOOD UREA NITROGEN 35.7 mg/dL (7-18)
[2021-02-19 12:30] LABS: BILIRUBIN,TOTAL 0.3 mg/dL (0.2-1); CREATININE 1.1 mg/dL (0.55-1.3); PHOSPHOROUS 3.4 mg/dL (2.5-4.9); TOT PROT 4.9 g/dl (6.4-8.2)
[2021-02-19] MEDS ORDERED: INSULIN (LEVEMIR) 100 UNITS/ML UNITS SQ SCH (14:46)
== END 2021-02-19 14:58 | DRG 871 ==
LOC: JER 18:22 → JERBED 20:26 → JICU 02-06 00:17 → J4S 02-08 23:49
PROVIDERS: ADMIT Internal Medicine Pulmonary Disease; ATTEND Family Medicine
DX: A41.89 Other specified sepsis (principal); E11.10 Type 2 diabetes mellitus with ketoacidosis without coma; G93.41 Metabolic encephalopathy; R65.21 Severe sepsis with septic shock; A04.72 Enterocolitis due to Clostridium difficile, not specified as recurrent; N17.9 Acute kidney failure, unspecified; E87.2 Acidosis; E87.0 Hyperosmolality and hypernatremia; I24.8 Other forms of acute ischemic heart disease; E46 Unspecified protein-calorie malnutrition; E78.00 Pure hypercholesterolemia, unspecified; F03.90 Unspecified dementia, unspecified severity, without behavioral disturbance, psychotic disturbance, mood disturbance, and anxiety; R00.0 Tachycardia, unspecified; R13.10 Dysphagia, unspecified; E11.319 Type 2 diabetes mellitus with unspecified diabetic retinopathy without macular edema; E11.40 Type 2 diabetes mellitus with diabetic neuropathy, unspecified; I70.90 Unspecified atherosclerosis; F41.8 Other specified anxiety disorders; M10.032 Idiopathic gout, left wrist; R41.82 Altered mental status, unspecified; I12.9 Hypertensive chronic kidney disease with stage 1 through stage 4 chronic kidney disease, or unspecified chronic kidney disease; E11.22 Type 2 diabetes mellitus with diabetic chronic kidney disease; N18.9 Chronic kidney disease, unspecified; E86.0 Dehydration; D72.829 Elevated white blood cell count, unspecified; R91.8 Other nonspecific abnormal finding of lung field; Z86.73 Personal history of transient ischemic attack (TIA), and cerebral infarction without residual deficits; Z68.22 Body mass index [BMI] 22.0-22.9, adult
CPT/HCPCS: 36415; 70450-TC; 71045-TC-FY; 74176-TC; 80053; 81003; 82010; 82550; 82607; 82746; 82803; 82962; 83036; 83605; 83690; 83735; 84100; 84443; 84478; 84484; 85025; 85027; 85610; 85730; 86140; 87040; 87086; 87324; 87449; 93005; 93010; 97116-GP; 97161-GP; 99291; C9803; J0131; J1644; J3480; U0003; U0005

== ENCOUNTER 2021-03-26 17:22 | Inpatient (IN) | payer OTHER ==
[2021-03-26] MEDS ORDERED: SODIUM CHLORIDE 1,361 ML IV ONE (18:56)
[2021-03-26] MEDS ORDERED: VANCOMYCIN 1 GM in D5W (PRE-DOCKED) 1,000 MG/250 ML IVPB ONE (19:59)
[2021-03-26] MEDS ORDERED: CEFEPIME HCL/D5W 2 GM/50 ML BAG IVPB ONE (20:05)
[2021-03-26] MEDS ORDERED: CEFEPIME 2 GM/100 ML BAG IVPB ONE (20:48)
[2021-03-26] MEDS ORDERED: SODIUM CHLORIDE 0.9% 500 ML INFUS.BAG IV ONE (21:06)
[2021-03-26 21:20] LABS: BASO % 0.5 % (0-2.0); HEMATOCRIT 25.2 % (32.4-45.2); HEMOGLOBIN 7.1 GM/dL (10.7-15.3); LYMPH % 2.9 % (8-40); MCH 27.5 pg (25.7-33.7); MCHC 28.2 g/dl (32.0-36.0); MEAN CELL VOLUME 97.6 fl (80-96); MEAN PLT VOLUME 10.4 fl (7.5-11.1); MONO % 2.4 % (3.8-10.2); NEUT % 94.2 % (42.8-82.8); PLATELET COUNT 217 10^3/uL (134-434); RBC 2.58 M/mm3 (3.60-5.2); RDW 22.5 % (11.6-15.6); VENOUS BASE EXCESS -21.7 mmol/L (-2-2); VENOUS O2 SATURATION 38.5 % (70-80); VENOUS PCO2 24.3 mmHg (38-52)
[2021-03-26 21:23] LABS: VENOUS PH 7.063 (7.310-7.410)
[2021-03-26] MEDS ORDERED: VANCOMYCIN 1 GRAM (PRE-DOCKED) 1,000 MG/250 ML BAG IVPB ONE (21:24)
[2021-03-26 21:28] LABS: EPI CELLS >36 /uL (0-25.1); HYALINE CASTS 109 /uL (0-3.1); URINE APPEARANCE TURBID; URINE BILIRUBIN 1+ (NEGATIVE); URINE COLOR DK YELLOW; URINE GLUCOSE (UA) NEGATIVE (NEGATIVE); URINE KETONE TRACE (NEGATIVE); URINE LEUK ESTERASE 2+ (NEGATIVE); URINE NITRITE NEGATIVE (NEGATIVE); URINE PROTEIN 1+ (NEGATIVE); URINE WBC 222 /uL (0-25.8)
[2021-03-26 21:44] LABS: CHLORIDE 122 mmol/L (98-107); SODIUM 151 mmol/L (136-145)
[2021-03-26] MEDS ORDERED: ACETAMINOPHEN 1000 MG/100 ML VIAL (NON FORMULARY) IVPB ONE (21:45)
[2021-03-26 21:46] LABS: ALBUMIN 1.6 g/dl (3.4-5.0); CALCIUM 7.2 mg/dL (8.5-10.1)
[2021-03-26 21:47] LABS: CO2 6 mmol/L (21-32)
[2021-03-26 21:50] LABS: CREATININE 3.5 mg/dL (0.55-1.3); SGOT/AST 22 U/L (15-37); SGPT/ALT 10 U/L (13-61)
[2021-03-26] MEDS ORDERED: ACETAMINOPHEN INJECTION 100 ML IVPB ONE (21:50)
[2021-03-26 21:52] LABS: BILIRUBIN,TOTAL 0.5 mg/dL (0.2-1); TOT PROT 4.4 g/dl (6.4-8.2)
[2021-03-26 21:53] LABS: ALK PHOS 92 U/L (45-117)
[2021-03-26 21:59] LABS: ANISOCYTOSIS 3+; LACTIC ACID 2.2 mmol/L (0.4-2.0); MACROCYTOSIS 1+; OVALOCYTE 1+; PLATELET ESTIMATE NORMAL
[2021-03-26 22:12] LABS: ANION GAP 23 MMOL/L (8-16); GLUCOSE,RANDOM 445 mg/dL (74-106)
[2021-03-26] MEDS ORDERED: INSULIN REGULAR HUMAN 100 UNITS/ML *VIAL IVPUSH ONE (22:24)
[2021-03-26 22:42] LABS: URINE BACTERIA 14.9 /uL (0-1359); URINE RBC 75.7 /uL (0-23.9); YEAST MANY (NEGATIVE)
[2021-03-27] MEDS ORDERED: INSULIN REGULAR HUMAN 100 UNITS/ML *VIAL IVPUSH ONE ×2 (00:31→09:42)
[2021-03-27] MEDS ORDERED: INSULIN REGULAR HUMAN 100 UNITS/ML *VIAL ONE ×2 (00:58→01:43)
[2021-03-27] MEDS ORDERED: NOREPINEPHRINE BITARTRATE 4 MG/4 ML ML IV ONE (01:39)
[2021-03-27] MEDS ORDERED: NOREPINEPHRINE BITARTRATE 4,000 MCG in DEXTROSE 5%-WATER - 496 ML IV SCH (01:45)
[2021-03-27 03:25] LABS: LACTIC ACID 3.2 mmol/L (0.4-2.0)
[2021-03-27 03:56] LABS: CHLORIDE 124 mmol/L (98-107); SODIUM 154 mmol/L (136-145)
[2021-03-27 03:57] LABS: CALCIUM 7.1 mg/dL (8.5-10.1)
[2021-03-27 03:58] LABS: ANION GAP 22 MMOL/L (8-16); CO2 8 mmol/L (21-32)
[2021-03-27] MEDS ORDERED: SODIUM CHLORIDE 0.45% 1,000 ML IV SCH (04:00)
[2021-03-27 04:01] LABS: CREATININE 3.6 mg/dL (0.55-1.3)
[2021-03-27 04:04] LABS: BLOOD UREA NITROGEN 108.3 mg/dL (7-18); GLUCOSE,RANDOM 408 mg/dL (74-106)
[2021-03-27] MEDS: SODIUM CHLORIDE 0.45%/POT 20 MEQ/1,000 ML INFUS.BAG IV SCH ×2 (05:49→13:49)
[2021-03-27] MEDS: INSULIN REGULAR 100 UNITS in SODIUM CHLORIDE 99 ML IVPB SCH (06:16)
[2021-03-27] MEDS ORDERED: INSULIN SLIDING SCALE (NOVOLOG) 1 VIAL SQ SCH (07:00)
[2021-03-27] MEDS: ALBUTEROL SO4 2.5/IPRATROPIUM 0.5 INH SOL 3 ML VIAL.NEB. NEB SCH ×4 (08:44→20:13)
[2021-03-27 09:16] LABS: CHLORIDE 124 mmol/L (98-107); SODIUM 152 mmol/L (136-145)
[2021-03-27 09:20] LABS: CALCIUM 7.1 mg/dL (8.5-10.1)
[2021-03-27 09:21] LABS: ALBUMIN 1.7 g/dl (3.4-5.0); ANION GAP 21 MMOL/L (8-16); CO2 8 mmol/L (21-32); MAGNESIUM 2.2 mg/dL (1.8-2.4)
[2021-03-27 09:22] LABS: CREATININE 3.6 mg/dL (0.55-1.3)
[2021-03-27 09:23] LABS: IRON SERUM 65 ug/dL (50-175); PHOSPHOROUS 4.4 mg/dL (2.5-4.9); SGOT/AST 14 U/L (15-37); SGPT/ALT 11 U/L (13-61); TOTAL IRON BINDING CAPACITY 80 ug/dL (250-450)
[2021-03-27 09:24] LABS: BILIRUBIN,TOTAL 0.3 mg/dL (0.2-1); TOT PROT 4.5 g/dl (6.4-8.2)
[2021-03-27 09:28] LABS: ALK PHOS 97 U/L (45-117)
[2021-03-27 09:37] LABS: BLOOD UREA NITROGEN 105.1 mg/dL (7-18); GLUCOSE,RANDOM 409 mg/dL (74-106); LACTIC ACID 2.4 mmol/L (0.4-2.0)
[2021-03-27 10:05] LABS: BASO % 0.1 % (0-2.0); HEMATOCRIT 28.4 % (32.4-45.2); HEMOGLOBIN 8.1 GM/dL (10.7-15.3); LYMPH % 2.8 % (8-40); MCH 26.9 pg (25.7-33.7); MCHC 28.5 g/dl (32.0-36.0); MEAN CELL VOLUME 94.4 fl (80-96); MEAN PLT VOLUME 10.2 fl (7.5-11.1); MONO % 3.4 % (3.8-10.2); NEUT % 93.7 % (42.8-82.8); PLATELET COUNT 197 10^3/uL (134-434); RDW 22.1 % (11.6-15.6); RETICULOCYTES 1.72 % (0.5-1.5); WHITE BLOOD COUNT 20.3 K/mm3 (4.0-10.0)
[2021-03-27] MEDS: NOREPINEPHRINE BITARTRATE 8,000 MCG in SODIUM CHLORIDE 492 ML IV SCH (10:31)
[2021-03-27] MEDS ORDERED: LACTATED RINGERS SOLUTION 1000 ML INFUS.BAG IV ONE (10:51)
[2021-03-27 11:19] LABS: ANISOCYTOSIS 0; MACROCYTOSIS 1+; PLATELET ESTIMATE NORMAL
[2021-03-27] MEDS: MUPIROCIN 2% TOPICAL OINTMENT FOR DECOLONIZATION NS SCH ×2 (11:27→21:27)
[2021-03-27] MEDS: AMMONIUM LACTATE 12% LOTION 225 GM BOTTLE TP SCH ×2 (11:28→22:10)
[2021-03-27] MEDS ORDERED: VANCOMYCIN 1,000 MG in DEXTROSE 5%-WATER - 250 ML IVPB ONE (11:29)
[2021-03-27] MEDS ORDERED: CEFEPIME HCL/D5W 1 GM/50 ML BAG IVPB SCH (11:30)
[2021-03-27] MEDS ORDERED: PT OWN MED DRAWER 7, Y5N ONE (11:38)
[2021-03-27] MEDS ORDERED: VANCOMYCIN 1 GRAM (PRE-DOCKED) 1 GM/250 ML BAG IVPB ONE (11:53)
[2021-03-27] MEDS: CITALOPRAM HYDROBROMIDE 20 MG TABLET PO SCH (12:40)
[2021-03-27] MEDS ORDERED: CEFEPIME HCL 1 GM VIAL (RESTRICTED TO ID) ONE (12:49)
[2021-03-27] MEDS ORDERED: DEXTROSE 5%-WATER - 50 ML IVPB ONE (12:49)
[2021-03-27] MEDS: CEFEPIME 1 GM in DEXTROSE 5%-WATER - 1 GM/50 ML IVPB IVPB SCH (12:51)
[2021-03-27] MEDS ORDERED: DEXTROSE 5%-0.45% SALINE 1,000 ML IV SCH ×2 (15:30→19:30)
[2021-03-27 16:05] LABS: CALCIUM 7.1 mg/dL (8.5-10.1)
[2021-03-27 16:06] LABS: BLOOD UREA NITROGEN 102.1 mg/dL (7-18)
[2021-03-27 16:08] LABS: CREATININE 3.6 mg/dL (0.55-1.3)
[2021-03-27] MEDS ORDERED: SODIUM BICARBONATE 8.4% - 100 MEQ in DEXTROSE 5%-WATER - 1,000 ML IV SCH (16:30)
[2021-03-27] MEDS ORDERED: DEXTROSE 10%-WATER 500 ML INFUS.BAG IV ONE (18:16)
[2021-03-27] MEDS ORDERED: DEXTROSE 50%-WATER - 25 GM/50 ML VIAL IVPUSH ONE (18:18)
[2021-03-27] MEDS ORDERED: DEXTROSE 50%-WATER 25 GM/50 ML DISP.SYRIN ONE (18:22)
[2021-03-27] MEDS ORDERED: SODIUM BICARBONATE 8.4% - 50 ML ONE (18:23)
[2021-03-27] MEDS: SODIUM BICARBONATE 8.4% - 150 MEQ in DEXTROSE 5%-WATER - 950 ML IV SCH (18:26)
[2021-03-27] MEDS ORDERED: ACETAMINOPHEN 1000 MG/100 ML VIAL (NON FORMULARY) IVPB ONE (20:27)
[2021-03-27 20:34] LABS: BLOOD UREA NITROGEN 97.1 mg/dL (7-18); CALCIUM 7.1 mg/dL (8.5-10.1)
[2021-03-27 20:38] LABS: CREATININE 3.3 mg/dL (0.55-1.3)
[2021-03-27] MEDS: CHLORHEXIDINE GLUCONATE 4% CLEANSER FOR DECOLONIZATION TP SCH (21:28)
[2021-03-27] MEDS ORDERED: MORPHINE SULFATE 2 MG/ML VIAL IVPUSH ONE (22:17)
[2021-03-27] MEDS ORDERED: METOPROLOL TARTRATE 5 MG/5 ML VIAL ONE (22:45)
[2021-03-27] MEDS ORDERED: METOPROLOL TARTRATE 5 MG/5 ML VIAL IVPUSH ONE (22:49)
[2021-03-28] MEDS ORDERED: MORPHINE SULFATE 2 MG/ML VIAL IVPUSH PRN (01:30)
[2021-03-28] MEDS: SODIUM BICARBONATE 8.4% - 150 MEQ in DEXTROSE 5%-WATER - 950 ML IV SCH (03:13)
[2021-03-28] MEDS: INSULIN REGULAR 100 UNITS in SODIUM CHLORIDE 99 ML IVPB SCH (04:32)
[2021-03-28] MEDS ORDERED: SODIUM BICARBONATE 8.4% - 150 MEQ in DEXTROSE 5%-WATER - 950 ML IV SCH ×2 (07:30→11:48)
[2021-03-28] MEDS: ALBUTEROL SO4 2.5/IPRATROPIUM 0.5 INH SOL 3 ML VIAL.NEB. NEB SCH ×4 (08:05→19:36)
[2021-03-28] MEDS: NOREPINEPHRINE BITARTRATE 8,000 MCG in SODIUM CHLORIDE 492 ML IV SCH (09:45)
[2021-03-28] MEDS ORDERED: CEFEPIME HCL 1 GM VIAL (RESTRICTED TO ID) ONE (10:58)
[2021-03-28] MEDS ORDERED: DEXTROSE 5%-WATER - 50 ML IVPB ONE (10:58)
[2021-03-28] MEDS ORDERED: PT OWN MED DRAWER 7, Y5N ONE (10:58)
[2021-03-28 12:06] LABS: VENOUS BASE EXCESS -1.9 mmol/L (-2-2); VENOUS O2 SATURATION 47.7 % (70-80); VENOUS PCO2 37.3 mmHg (38-52); VENOUS PH 7.401 (7.310-7.410)
[2021-03-28] MEDS ORDERED: SODIUM BICARBONATE 8.4% - 50 ML ONE (12:22)
[2021-03-28 12:24] LABS: CHLORIDE 113 mmol/L (98-107); SODIUM 147 mmol/L (136-145)
[2021-03-28 12:27] LABS: ALBUMIN 1.4 g/dl (3.4-5.0); ANION GAP 10 MMOL/L (8-16); BLOOD UREA NITROGEN 77.9 mg/dL (7-18); CO2 24 mmol/L (21-32); GLUCOSE,RANDOM 277 mg/dL (74-106); MAGNESIUM 1.5 mg/dL (1.8-2.4)
[2021-03-28 12:30] LABS: CREATININE 2.8 mg/dL (0.55-1.3); PHOSPHOROUS 2.5 mg/dL (2.5-4.9); SGOT/AST 27 U/L (15-37); SGPT/ALT 11 U/L (13-61)
[2021-03-28 12:31] LABS: BILIRUBIN,TOTAL 0.4 mg/dL (0.2-1); TOT PROT 3.8 g/dl (6.4-8.2)
[2021-03-28 12:33] LABS: ALK PHOS 87 U/L (45-117)
[2021-03-28 12:41] LABS: CALCIUM 6.7 mg/dL (8.5-10.1)
[2021-03-28] MEDS: CITALOPRAM HYDROBROMIDE 20 MG TABLET PO SCH (12:56)
[2021-03-28] MEDS: CEFEPIME 1 GM in DEXTROSE 5%-WATER - 1 GM/50 ML IVPB IVPB SCH (12:58)
[2021-03-28] MEDS: MUPIROCIN 2% TOPICAL OINTMENT FOR DECOLONIZATION NS SCH ×2 (13:00→23:03)
[2021-03-28] MEDS: INSULIN SLIDING SCALE (NOVOLOG) 1 VIAL SQ SCH ×3 (13:00→23:10)
[2021-03-28] MEDS: AMMONIUM LACTATE 12% LOTION 225 GM BOTTLE TP SCH ×2 (13:01→23:03)
[2021-03-28 13:04] LABS: BASO % 0.1 % (0-2.0); HEMATOCRIT 20.2 % (32.4-45.2); LYMPH % 2.4 % (8-40); MCH 27.6 pg (25.7-33.7); MCHC 32.5 g/dl (32.0-36.0); MEAN PLT VOLUME 9.2 fl (7.5-11.1); MONO % 1.9 % (3.8-10.2); NEUT % 95.6 % (42.8-82.8); PLATELET COUNT 97 10^3/uL (134-434); RBC 2.38 M/mm3 (3.60-5.2); RDW 20.9 % (11.6-15.6); WHITE BLOOD COUNT 15.4 K/mm3 (4.0-10.0)
[2021-03-28 13:10] LABS: HEMOGLOBIN 6.6 GM/dL (10.7-15.3)
[2021-03-28] MEDS ORDERED: AMIODARONE IN DEXTROSE,ISO-OSM 150 MG/100 ML BAG ONE (13:27)
[2021-03-28] MEDS ORDERED: AMIODARONE IN DEXTROSE,ISO-OSM 360 MG/200 ML BAG ONE (13:29)
[2021-03-28] MEDS ORDERED: AMIODARONE IN DEXTROSE,ISO-OSM 360 MG/200 ML BAG IVPB ONE ×2 (13:40→20:00)
[2021-03-28 13:45] LABS: ANISOCYTOSIS 2+; MACROCYTOSIS 0; PLATELET ESTIMATE DECREASED
[2021-03-28] MEDS ORDERED: AMIODARONE IN DEXTROSE,ISO-OSM 150 MG/100 ML BAG IVPB ONE (13:45)
[2021-03-28] MEDS ORDERED: MAGNESIUM SULFATE IN WATER 2 GM/50 ML IVPB IVPB ONE (17:15)
[2021-03-28] MEDS: KCL 10 MEQ IVPB 10 MEQ/100 ML INFUS.BAG IVPB SCH ×2 (19:40→23:03)
[2021-03-28] MEDS ORDERED: SODIUM CHLORIDE 0.45% 1,000 ML IV SCH (20:30)
[2021-03-28] MEDS ORDERED: SODIUM BICARBONATE 8.4% - 150 MEQ in DEXTROSE 5%-WATER - 950 ML IVPB SCH (20:45)
[2021-03-28] MEDS ORDERED: VANCOMYCIN/WATER FOR INJ (PEG) 750 MG/150 ML BAG IVPB SCH (21:00)
[2021-03-28] MEDS: SODIUM BICARBONATE 8.4% - 75 MEQ in SODIUM CHLORIDE 0.45% 1,000 ML IVPB SCH (23:03)
[2021-03-28] MEDS: CHLORHEXIDINE GLUCONATE 4% CLEANSER FOR DECOLONIZATION TP SCH (23:03)
[2021-03-29] MEDS ORDERED: MORPHINE SULFATE 2 MG/ML VIAL IVPUSH ONE (02:19)
[2021-03-29] MEDS ORDERED: MORPHINE SULFATE 2 MG/ML VIAL IVPUSH PRN (04:56)
[2021-03-29 05:08] LABS: HEMATOCRIT 29.1 % (32.4-45.2); HEMOGLOBIN 9.7 GM/dL (10.7-15.3); MCH 28.7 pg (25.7-33.7); MCHC 33.2 g/dl (32.0-36.0); MEAN CELL VOLUME 86.5 fl (80-96); MEAN PLT VOLUME 9.9 fl (7.5-11.1); PLATELET COUNT 84 10^3/uL (134-434); RBC 3.37 M/mm3 (3.60-5.2); RDW 19.3 % (11.6-15.6); WHITE BLOOD COUNT 20.1 K/mm3 (4.0-10.0)
[2021-03-29 05:30] LABS: CHLORIDE 113 mmol/L (98-107); SODIUM 147 mmol/L (136-145)
[2021-03-29 05:35] LABS: ALBUMIN 1.5 g/dl (3.4-5.0); ANION GAP 11 MMOL/L (8-16); BLOOD UREA NITROGEN 74.1 mg/dL (7-18); CO2 23 mmol/L (21-32); GLUCOSE,RANDOM 153 mg/dL (74-106); MAGNESIUM 2.1 mg/dL (1.8-2.4)
[2021-03-29 05:38] LABS: SGOT/AST 34 U/L (15-37); SGPT/ALT 18 U/L (13-61)
[2021-03-29 05:39] LABS: CREATININE 2.5 mg/dL (0.55-1.3); PHOSPHOROUS 2.1 mg/dL (2.5-4.9)
[2021-03-29 05:40] LABS: BILIRUBIN,TOTAL 0.4 mg/dL (0.2-1); TOT PROT 3.8 g/dl (6.4-8.2)
[2021-03-29 05:41] LABS: ALK PHOS 95 U/L (45-117)
[2021-03-29 06:09] LABS: CALCIUM 6.9 mg/dL (8.5-10.1)
[2021-03-29] MEDS: INSULIN REGULAR 100 UNITS in SODIUM CHLORIDE 99 ML IVPB SCH (06:15)
[2021-03-29] MEDS: NOREPINEPHRINE BITARTRATE 8,000 MCG in SODIUM CHLORIDE 492 ML IV SCH (07:00)
[2021-03-29] MEDS ORDERED: INSULIN (LEVEMIR) 100 UNITS/ML UNITS SQ SCH (07:00)
[2021-03-29] MEDS: INSULIN SLIDING SCALE (NOVOLOG) 1 VIAL SQ SCH ×2 (07:39→12:00)
[2021-03-29] MEDS: ALBUTEROL SO4 2.5/IPRATROPIUM 0.5 INH SOL 3 ML VIAL.NEB. NEB SCH ×3 (07:40→15:45)
[2021-03-29] MEDS ORDERED: AMIODARONE IN DEXTROSE,ISO-OSM 360 MG/200 ML BAG ONE (07:51)
[2021-03-29] MEDS ORDERED: NAPH,MB-DB/K PH,MBDB POWDER PACKET PO ONE (08:43)
[2021-03-29] MEDS ORDERED: FAMOTIDINE 20 MG/50 ML IVPB 20 MG/50 ML MG IVPB SCH ×2 (09:30→10:00)
[2021-03-29] MEDS: SODIUM BICARBONATE 8.4% - 75 MEQ in SODIUM CHLORIDE 0.45% 1,000 ML IVPB SCH (09:31)
[2021-03-29] MEDS: CITALOPRAM HYDROBROMIDE 20 MG TABLET PO SCH (10:57)
[2021-03-29] MEDS: AMMONIUM LACTATE 12% LOTION 225 GM BOTTLE TP SCH (10:57)
[2021-03-29] MEDS: MUPIROCIN 2% TOPICAL OINTMENT FOR DECOLONIZATION NS SCH (10:58)
[2021-03-29] MEDS ORDERED: KCL 10 MEQ IVPB 10 MEQ/100 ML INFUS.BAG IVPB SCH (11:45)
[2021-03-29] MEDS: CEFEPIME 1 GM in DEXTROSE 5%-WATER - 1 GM/50 ML IVPB IVPB SCH (13:00)
[2021-03-29] MEDS ORDERED: CEFEPIME HCL 1 GM VIAL (RESTRICTED TO ID) ONE (13:26)
[2021-03-29] MEDS ORDERED: DEXTROSE 5%-WATER - 50 ML IVPB ONE (13:26)
[2021-03-29] MEDS ORDERED: AMIODARONE IN DEXTROSE,ISO-OSM 360 MG/200 ML BAG IVPB ONE (13:48)
[2021-03-29 14:16] VITALS: BMI 24.1
[2021-03-29 18:18] VITALS: BP 114/54; PULSE 112; TEMP 96.7
[2021-03-30] MEDS ORDERED: VANCOMYCIN/WATER FOR INJ (PEG) 750 MG/150 ML BAG IVPB SCH (21:00)
== END 2021-03-29 18:45 | disposition expired | DRG 871 ==
LOC: JER 17:22 → JERBED 03-27 02:21 → JICU 03-27 05:20
PROVIDERS: ADMIT Internal Medicine Pulmonary Disease; ATTEND Family Medicine
PROC: 05HM33Z Insertion of Infusion Device into Right Internal Jugular Vein, Percutaneous Approach (ICD-10-PCS; principal; 2021-03-28)
PROC: B543ZZA Ultrasonography of Right Jugular Veins, Guidance (ICD-10-PCS; 2021-03-28)
DX: A41.89 Other specified sepsis (principal); R65.21 Severe sepsis with septic shock; E11.10 Type 2 diabetes mellitus with ketoacidosis without coma; G93.41 Metabolic encephalopathy; N17.9 Acute kidney failure, unspecified; E87.0 Hyperosmolality and hypernatremia; N39.0 Urinary tract infection, site not specified; E87.2 Acidosis; I12.9 Hypertensive chronic kidney disease with stage 1 through stage 4 chronic kidney disease, or unspecified chronic kidney disease; E11.22 Type 2 diabetes mellitus with diabetic chronic kidney disease; N18.9 Chronic kidney disease, unspecified; K52.9 Noninfective gastroenteritis and colitis, unspecified; E87.5 Hyperkalemia; I48.91 Unspecified atrial fibrillation; R10.9 Unspecified abdominal pain; D72.829 Elevated white blood cell count, unspecified; M10.9 Gout, unspecified; I95.9 Hypotension, unspecified; D64.9 Anemia, unspecified; I46.9 Cardiac arrest, cause unspecified
CPT/HCPCS: 36415; 36430; 70450-TC; 71045-TC-FY; 74176-TC; 76775-TC; 80048; 80053; 81003; 82010; 82728; 82803; 82962; 83540; 83550; 83605; 83735; 84100; 84484; 85025; 85027; 85045; 86850; 86900; 86901; 86922; 87040; 87086; 87186; 87804; 93005; 93010; 94640; 99291; C9803; G0480; J0131; J0282; J3480; P9058; U0003; U0005